=== PATIENT | female | born 1935 | race Caucasian/White ===

== ENCOUNTER 2017-03-02 19:21 | Inpatient (IN) ==
[2017-03-02] MEDS ORDERED: HALOPERIDOL 5 MG/ML AMP ONE (19:49)
[2017-03-02] MEDS ORDERED: LORazepam 2 MG/1 ML VIAL ONE (19:49)
[2017-03-02] MEDS ORDERED: HALOPERIDOL 5 MG/ML AMP IV STA (20:02)
[2017-03-02] MEDS ORDERED: LORazepam 2 MG/1 ML VIAL IV STA (20:03)
[2017-03-02] MEDS ORDERED: SODIUM CHLORIDE 0.9% 500 ML IV STA (20:10)
[2017-03-02 20:44] LABS: Basophils % 0.7 % (0.0-0.8); Eosinophils # 0.1 10*3/uL (0.0-0.87); Eosinophils % 1.2 % (0.00-10.9); Hematocrit 43.5 VOL% (35.7-47.0); Hemoglobin 14.7 GM/DL (12.0-16.0); Immature Granulocytes % 0.3 %; Immature Granulocytes Absolute 0.02 #; Lymphocytes # 0.9 10*3/uL (1.4-4.0); Lymphocytes % 15.5 % (21.3-54.2); Mean Corpuscular HGB Conc 33.8 GM/DL (32-36); Mean Corpuscular Hemoglobin 30 PG (27-34); Mean Corpuscular Volume 89.7 FL (87-102); Mean Platelet Volume 10.5 FL (9.6-12.0); Monocytes # 0.5 10*3/uL (0.11-0.8); Monocytes % 9.1 % (1.7-12.7); Neutrophils # 4.2 10*3/uL (1.4-7.4); Neutrophils % 73.2 % (38.7-73.9); Platelet Count 155 T/CUMM (130-400); Red Blood Count 4.85 MC/CUMM (3.8-5.5); Red Cell Distribution Width 13.8 % (9.3-17.3); White Blood Count 5.7 T/CUMM (4-12)
[2017-03-02 20:58] LABS: Ammonia 16 UMOL/L (11-32)
[2017-03-02 21:04] LABS: Alanine Aminotransferase 18 U/L (13-56); Albumin 3.5 G/DL (3.4-5.0); Alkaline Phosphatase 58 U/L (45-117); Aspartate Amino Transferase 16 U/L (0-37); Blood Urea Nitrogen 11 MG/DL (7-18); Calcium 8.9 MG/DL (8.5-10.1); Glucose 130 MG/DL (74-106); Magnesium 2.1 MG/DL (1.8-2.4); Osmolality,Calculated 266.4 MOS/KG (273-304); Potassium 3.9 MMOL/L (3.5-5.1); Sodium 133 MMOL/L (136-145); Total Protein 7.5 G/DL (6.4-8.3); Troponin I Only < 0.015 NG/ML (0.00-0.045)
[2017-03-02 21:29] LABS: Apearance,Urine CLEAR (Clear); Bilirubin,Urine Negative (Negative); Blood, Urine Negative (Negative); Glucose,Urine (UA) Negative (Negative); Ketones,Urine Negative (Negative); Mucus,Urine Occasional /LPF (Occasional); Nitrite,Urine Negative (Negative); Protein,Urine Negative; RBC,Urine 1 /HPF (0-4); Squamous Epithelial Cell,Urine Occasional /HPF (0-10); Urine Color Yellow (Yellow); Urine Specific Gravity 1.012 (1.001-1.035)
[2017-03-02 21:32] LABS: Barbiturates Screen,Urine Negative (Negative); Benzodiazepines Screen,Urine Negative (Negative); Cannabinoid Screen,Urine Negative (Negative); Opiate Screen,Urine Negative (Negative); Phencyclidine Screen,Urine Negative (Negative)
[2017-03-02 21:39] LABS: PT Patient Result 10.7 SECS
[2017-03-02] MEDS ORDERED: ONDANSETRON 4 MG/2 ML VIAL IV PRN (23:42)
[2017-03-02] MEDS ORDERED: ACETAMINOPHEN 325 MG TABLET PO PRN (23:42)
[2017-03-03] MEDS: SODIUM CHLORIDE 0.9% 1,000 ML IV SCH ×2 (01:07→12:17)
[2017-03-03] MEDS: HALOPERIDOL 5 MG/ML AMP IM PRN ×2 (03:09→22:47)
[2017-03-03] MEDS: LORazepam 2 MG/1 ML VIAL IV PRN ×2 (04:13→09:08)
[2017-03-03 05:31] LABS: Basophils % 0.6 % (0.0-0.8); Eosinophils # 0.1 10*3/uL (0.0-0.87); Eosinophils % 1.1 % (0.00-10.9); Hematocrit 39.4 VOL% (35.7-47.0); Hemoglobin 13.9 GM/DL (12.0-16.0); Immature Granulocytes % 0.4 %; Immature Granulocytes Absolute 0.02 #; Lymphocytes # 0.8 10*3/uL (1.4-4.0); Lymphocytes % 16.6 % (21.3-54.2); Mean Corpuscular HGB Conc 35.3 GM/DL (32-36); Mean Corpuscular Hemoglobin 31 PG (27-34); Mean Corpuscular Volume 87.9 FL (87-102); Mean Platelet Volume 10.7 FL (9.6-12.0); Monocytes # 0.5 10*3/uL (0.11-0.8); Monocytes % 10.1 % (1.7-12.7); Neutrophils # 3.4 10*3/uL (1.4-7.4); Neutrophils % 71.2 % (38.7-73.9); Platelet Count 153 T/CUMM (130-400); Red Blood Count 4.48 MC/CUMM (3.8-5.5); White Blood Count 4.8 T/CUMM (4-12)
[2017-03-03 05:53] LABS: Albumin 3.1 G/DL (3.4-5.0); Bilirubin,Total 0.9 MG/DL (0.2-1.0); Calcium 8.5 MG/DL (8.5-10.1); Magnesium 2.4 MG/DL (1.8-2.4); Osmolality,Calculated 268.2 MOS/KG (273-304); Potassium 3.8 MMOL/L (3.5-5.1); Risk Ratio 4.32; Total Protein 6.6 G/DL (6.4-8.3)
[2017-03-03] MEDS: DOCUSATE SODIUM 100 MG CAPSULE PO SCH ×2 (09:10→20:58)
[2017-03-03] MEDS: PANTOPRAZOLE 40 MG TABLET PO SCH (09:10)
[2017-03-03] MEDS ORDERED: FUROSEMIDE 40 MG/4 ML VIAL IV ONE (11:46)
[2017-03-03] MEDS: LEVOFLOXACIN INJ 250 MG in PREMIX 1 EACH IV SCH (12:17)
[2017-03-04] MEDS: LORazepam 2 MG/1 ML VIAL IV PRN ×4 (01:43→22:54)
[2017-03-04] MEDS ORDERED: LORazepam 2 MG/1 ML VIAL IM ONE (03:00)
[2017-03-04] MEDS ORDERED: HALOPERIDOL 5 MG/ML AMP IM ONE (03:00)
[2017-03-04 05:54] LABS: Calcium 8.4 MG/DL (8.5-10.1); Potassium 3.9 MMOL/L (3.5-5.1)
[2017-03-04] MEDS: FUROSEMIDE 20 MG/2 ML VIAL IV SCH (09:13)
[2017-03-04] MEDS: PANTOPRAZOLE 40 MG TABLET PO SCH (09:14)
[2017-03-04] MEDS: DOCUSATE SODIUM 100 MG CAPSULE PO SCH ×2 (09:14→21:54)
[2017-03-04 11:50] LABS: Lymphocytes,CSF 68 %; Monocytes,CSF 32 %; Red Blood Cell,CSF < 1 C/CUMM; White Blood Cell,CSF 4 C/CUMM
[2017-03-04 11:51] LABS: Appearance,CSF Clear
[2017-03-04 11:55] LABS: Glucose,CSF 56 MG/DL (40-70)
[2017-03-04] MEDS: SODIUM CHLORIDE 0.9% 1,000 ML IV SCH (12:46)
[2017-03-04] MEDS: LEVOFLOXACIN INJ 250 MG in PREMIX 1 EACH IV SCH (12:46)
[2017-03-04] MEDS ORDERED: AMINO ACIDS/DEXT/LYTES 4.25-5% 2,000 ML IV SCH (20:00)
[2017-03-05] MEDS: LORazepam 2 MG/1 ML VIAL IV PRN ×2 (04:59→13:57)
[2017-03-05] MEDS: HALOPERIDOL 5 MG/ML AMP IM PRN (05:37)
[2017-03-05 06:22] LABS: Albumin 3.1 G/DL (3.4-5.0); Bilirubin,Total 0.6 MG/DL (0.2-1.0); Calcium 8.9 MG/DL (8.5-10.1); Osmolality,Calculated 276.8 MOS/KG (273-304); Potassium 3.9 MMOL/L (3.5-5.1); Total Protein 7.3 G/DL (6.4-8.3)
[2017-03-05] MEDS: FUROSEMIDE 20 MG/2 ML VIAL IV SCH (09:20)
[2017-03-05] MEDS: PANTOPRAZOLE 40 MG TABLET PO SCH (10:32)
[2017-03-05] MEDS: DOCUSATE SODIUM 100 MG CAPSULE PO SCH ×2 (10:32→21:16)
[2017-03-05] MEDS: LEVOFLOXACIN INJ 250 MG in PREMIX 1 EACH IV SCH (13:57)
[2017-03-05] MEDS: FAT EMULSION 20% 250 ML IV SCH (15:27)
[2017-03-05] MEDS: TRACE ELEMENTS (5) 1 ML, MULTIVITAMIN INJ 10 ML in AMINO ACIDS/DEXT/LYTES 4.25-5% 2,000 ML IV SCH (17:20)
[2017-03-05] MEDS: hydrALAZINE 20 MG/1 ML VIAL IV SCH (22:58)
[2017-03-05] MEDS: SODIUM CHLORIDE 0.9% 1,000 ML IV SCH (22:58)
[2017-03-05] MEDS: FAMOTIDINE 20 MG/2 ML VIAL IV SCH (22:59)
[2017-03-05] MEDS: methylPREDNISolone SOD SUC 40 MG/1 ML VIAL IV SCH (22:59)
[2017-03-06 04:08] LABS: Calcium 8.8 MG/DL (8.5-10.1); Osmolality,Calculated 278.8 MOS/KG (273-304); Potassium 3.9 MMOL/L (3.5-5.1); Prealbumin 28.5 MG/DL (20-40)
[2017-03-06 04:11] LABS: Alanine Aminotransferase 32 U/L (13-56); Albumin 3.4 G/DL (3.4-5.0); Alkaline Phosphatase 58 U/L (45-117); Aspartate Amino Transferase 53 U/L (0-37); Bilirubin,Direct < 0.100 MG/DL (0.0-0.20); Total Protein 7.8 G/DL (6.4-8.3)
[2017-03-06] MEDS: hydrALAZINE 20 MG/1 ML VIAL IV SCH ×4 (05:12→22:28)
[2017-03-06] MEDS: methylPREDNISolone SOD SUC 40 MG/1 ML VIAL IV SCH ×3 (06:34→22:25)
[2017-03-06] MEDS: SODIUM CHLORIDE 0.9% 1,000 ML IV SCH ×2 (07:54→09:24)
[2017-03-06] MEDS: DOCUSATE SODIUM 100 MG CAPSULE PO SCH ×2 (09:24→20:53)
[2017-03-06] MEDS: FUROSEMIDE 20 MG/2 ML VIAL IV SCH (09:24)
[2017-03-06] MEDS: LEVOFLOXACIN INJ 500 MG in PREMIX 1 EACH IV SCH (09:25)
[2017-03-06 11:51] LABS: VDRL Spinal Fluid Negative (Negative)
[2017-03-06] MEDS: MEMANTINE 5 MG TABLET PO SCH ×2 (15:11→20:53)
[2017-03-06] MEDS: TRACE ELEMENTS (5) 1 ML, MULTIVITAMIN INJ 10 ML in AMINO ACIDS/DEXT/LYTES 4.25-5% 2,000 ML IV SCH (16:56)
[2017-03-06] MEDS: FAT EMULSION 20% 250 ML IV SCH (16:57)
[2017-03-06] MEDS: OLANZapine 2.5 MG TABLET PO SCH (20:53)
[2017-03-06] MEDS ORDERED: DEXTROSE 50% 25 GM/50 ML VIAL IV PRN (21:35)
[2017-03-06] MEDS ORDERED: GLUCAGON 1 MG VIAL IM PRN (21:35)
[2017-03-06] MEDS: HALOPERIDOL 5 MG/ML AMP IV PRN (22:23)
[2017-03-06] MEDS: FAMOTIDINE 20 MG/2 ML VIAL IV SCH (22:30)
[2017-03-06] MEDS: INSULIN REGULAR 100 UNIT/ML SUBCUT SCH (22:32)
[2017-03-07] MEDS: INSULIN REGULAR 100 UNIT/ML SUBCUT SCH ×5 (02:27→18:13)
[2017-03-07] MEDS: hydrALAZINE 20 MG/1 ML VIAL IV SCH ×3 (04:57→16:17)
[2017-03-07] MEDS: SODIUM CHLORIDE 0.9% 1,000 ML IV SCH ×2 (04:58→12:27)
[2017-03-07] MEDS: FUROSEMIDE 20 MG/2 ML VIAL IV SCH (08:40)
[2017-03-07] MEDS: methylPREDNISolone SOD SUC 40 MG/1 ML VIAL IV SCH ×2 (08:40→14:12)
[2017-03-07] MEDS: LEVOFLOXACIN INJ 500 MG in PREMIX 1 EACH IV SCH (08:41)
[2017-03-07] MEDS: DOCUSATE SODIUM 100 MG CAPSULE PO SCH ×2 (08:45→20:04)
[2017-03-07] MEDS: OLANZapine 2.5 MG TABLET PO SCH ×2 (08:46→20:04)
[2017-03-07] MEDS: MEMANTINE 5 MG TABLET PO SCH ×2 (08:46→20:04)
[2017-03-07] MEDS: FAT EMULSION 20% 250 ML IV SCH (14:04)
[2017-03-07] MEDS: TRACE ELEMENTS (5) 1 ML, MULTIVITAMIN INJ 10 ML in AMINO ACIDS/DEXT/LYTES 4.25-5% 2,000 ML IV SCH (17:18)
[2017-03-08] MEDS: INSULIN REGULAR 100 UNIT/ML SUBCUT SCH ×7 (00:02→22:28)
[2017-03-08] MEDS: FAMOTIDINE 20 MG/2 ML VIAL IV SCH ×2 (00:02→22:26)
[2017-03-08] MEDS: hydrALAZINE 20 MG/1 ML VIAL IV SCH ×5 (00:02→22:29)
[2017-03-08] MEDS: methylPREDNISolone SOD SUC 40 MG/1 ML VIAL IV SCH ×4 (00:03→22:33)
[2017-03-08] MEDS: SODIUM CHLORIDE 0.9% 1,000 ML IV SCH ×3 (04:53→12:12)
[2017-03-08] MEDS: DOCUSATE SODIUM 100 MG CAPSULE PO SCH ×2 (09:02→20:19)
[2017-03-08] MEDS: OLANZapine 2.5 MG TABLET PO SCH ×2 (09:02→20:20)
[2017-03-08] MEDS: MEMANTINE 5 MG TABLET PO SCH ×2 (09:02→20:19)
[2017-03-08] MEDS: FUROSEMIDE 20 MG/2 ML VIAL IV SCH (10:00)
[2017-03-08 15:42] LABS: M. Tuberculosis PCR Result Negative (Negative); M. Tuberculosis PCR Source CSF
[2017-03-08] MEDS: FAT EMULSION 20% 250 ML IV SCH (17:07)
[2017-03-08] MEDS: TRACE ELEMENTS (5) 1 ML, MULTIVITAMIN INJ 10 ML in AMINO ACIDS/DEXT/LYTES 4.25-5% 2,000 ML IV SCH (17:09)
[2017-03-08] MEDS: ZINC OXIDE PASTE 113 GM TUBE TOP SCH (20:31)
[2017-03-09] MEDS: SODIUM CHLORIDE 0.9% 1,000 ML IV SCH ×2 (02:22→18:31)
[2017-03-09 03:50] LABS: Calcium 8.7 MG/DL (8.5-10.1); Magnesium 2.1 MG/DL (1.8-2.4); Osmolality,Calculated 293.3 MOS/KG (273-304); Potassium 3.5 MMOL/L (3.5-5.1)
[2017-03-09] MEDS: hydrALAZINE 20 MG/1 ML VIAL IV SCH ×3 (03:51→18:34)
[2017-03-09] MEDS: INSULIN REGULAR 100 UNIT/ML SUBCUT SCH ×6 (03:53→21:18)
[2017-03-09] MEDS: methylPREDNISolone SOD SUC 40 MG/1 ML VIAL IV SCH ×3 (06:32→21:45)
[2017-03-09] MEDS: DOCUSATE SODIUM 100 MG CAPSULE PO SCH ×2 (09:00→21:17)
[2017-03-09] MEDS: MEMANTINE 5 MG TABLET PO SCH ×2 (09:00→21:17)
[2017-03-09] MEDS: OLANZapine 2.5 MG TABLET PO SCH ×2 (09:01→21:18)
[2017-03-09] MEDS: FUROSEMIDE 20 MG/2 ML VIAL IV SCH (09:02)
[2017-03-09] MEDS: ZINC OXIDE PASTE 113 GM TUBE TOP SCH ×3 (09:02→21:46)
[2017-03-09] MEDS: HALOPERIDOL 5 MG/ML AMP IV PRN (18:30)
[2017-03-09] MEDS: TRACE ELEMENTS (5) 1 ML, MULTIVITAMIN INJ 10 ML in AMINO ACIDS/DEXT/LYTES 4.25-5% 2,000 ML IV SCH (18:41)
[2017-03-09] MEDS: FAT EMULSION 20% 250 ML IV SCH (18:43)
[2017-03-09] MEDS: FAMOTIDINE 20 MG/2 ML VIAL IV SCH (21:45)
[2017-03-10] MEDS: hydrALAZINE 20 MG/1 ML VIAL IV SCH ×5 (00:49→22:50)
[2017-03-10] MEDS: INSULIN REGULAR 100 UNIT/ML SUBCUT SCH ×6 (02:22→22:49)
[2017-03-10] MEDS: SODIUM CHLORIDE 0.9% 1,000 ML IV SCH ×2 (04:57→21:20)
[2017-03-10] MEDS: HALOPERIDOL 5 MG/ML AMP IV PRN ×2 (04:59→21:18)
[2017-03-10] MEDS: methylPREDNISolone SOD SUC 40 MG/1 ML VIAL IV SCH ×3 (06:54→22:50)
[2017-03-10 07:44] LABS: Basophils % 0.2 % (0.0-0.8); Eosinophils % 0.1 % (0.00-10.9); Hematocrit 45.2 VOL% (35.7-47.0); Hemoglobin 15.7 GM/DL (12.0-16.0); Immature Granulocytes % 0.8 %; Immature Granulocytes Absolute 0.09 #; Lymphocytes # 0.9 10*3/uL (1.4-4.0); Lymphocytes % 8.6 % (21.3-54.2); Mean Corpuscular HGB Conc 34.7 GM/DL (32-36); Mean Corpuscular Hemoglobin 30 PG (27-34); Mean Corpuscular Volume 86.8 FL (87-102); Mean Platelet Volume 11.4 FL (9.6-12.0); Monocytes # 0.5 10*3/uL (0.11-0.8); Monocytes % 4.6 % (1.7-12.7); Neutrophils # 9.4 10*3/uL (1.4-7.4); Neutrophils % 85.7 % (38.7-73.9); Platelet Count 189 T/CUMM (130-400); Red Blood Count 5.21 MC/CUMM (3.8-5.5); Red Cell Distribution Width 13.5 % (9.3-17.3); White Blood Count 10.9 T/CUMM (4-12)
[2017-03-10 08:10] LABS: Calcium 8.9 MG/DL (8.5-10.1); Magnesium 1.9 MG/DL (1.8-2.4); Osmolality,Calculated 283.8 MOS/KG (273-304); Potassium 3.4 MMOL/L (3.5-5.1)
[2017-03-10] MEDS: NYSTATIN 500,000 UNIT/5 ML UDCUP SWISH/SWAL SCH ×4 (10:36→21:17)
[2017-03-10] MEDS: POTASSIUM CHLORIDE 8 MEQ CAPSULE PO SCH (10:38)
[2017-03-10] MEDS: FUROSEMIDE 20 MG/2 ML VIAL IV SCH (10:39)
[2017-03-10] MEDS: ZINC OXIDE PASTE 113 GM TUBE TOP SCH ×2 (10:41→21:17)
[2017-03-10] MEDS: DOCUSATE SODIUM 100 MG CAPSULE PO SCH ×2 (10:42→21:17)
[2017-03-10] MEDS: MEMANTINE 5 MG TABLET PO SCH ×2 (10:48→21:17)
[2017-03-10] MEDS: OLANZapine 2.5 MG TABLET PO SCH ×2 (10:48→21:17)
[2017-03-10] MEDS: FAT EMULSION 20% 250 ML IV SCH (15:45)
[2017-03-10] MEDS: FAMOTIDINE 20 MG/2 ML VIAL IV SCH (22:49)
[2017-03-11] MEDS: INSULIN REGULAR 100 UNIT/ML SUBCUT SCH ×6 (02:59→22:24)
[2017-03-11] MEDS: HALOPERIDOL 5 MG/ML AMP IV PRN (04:19)
[2017-03-11] MEDS: methylPREDNISolone SOD SUC 40 MG/1 ML VIAL IV SCH ×3 (05:41→22:22)
[2017-03-11 05:42] LABS: Basophils % 0.1 % (0.0-0.8); Hematocrit 43.5 VOL% (35.7-47.0); Hemoglobin 15.3 GM/DL (12.0-16.0); Immature Granulocytes % 0.6 %; Immature Granulocytes Absolute 0.05 #; Lymphocytes # 0.9 10*3/uL (1.4-4.0); Lymphocytes % 10.5 % (21.3-54.2); Mean Corpuscular HGB Conc 35.2 GM/DL (32-36); Mean Corpuscular Hemoglobin 30 PG (27-34); Mean Corpuscular Volume 85.5 FL (87-102); Mean Platelet Volume 11.4 FL (9.6-12.0); Monocytes # 0.5 10*3/uL (0.11-0.8); Monocytes % 5.6 % (1.7-12.7); Neutrophils # 7.3 10*3/uL (1.4-7.4); Neutrophils % 83.2 % (38.7-73.9); Platelet Count 211 T/CUMM (130-400); Red Blood Count 5.09 MC/CUMM (3.8-5.5); Red Cell Distribution Width 13.7 % (9.3-17.3); White Blood Count 8.8 T/CUMM (4-12)
[2017-03-11] MEDS: hydrALAZINE 20 MG/1 ML VIAL IV SCH ×4 (05:42→22:20)
[2017-03-11 06:26] LABS: Osmolality,Calculated 283.7 MOS/KG (273-304); Potassium 3.8 MMOL/L (3.5-5.1)
[2017-03-11] MEDS: NYSTATIN 500,000 UNIT/5 ML UDCUP SWISH/SWAL SCH ×4 (08:52→20:25)
[2017-03-11] MEDS: FUROSEMIDE 20 MG/2 ML VIAL IV SCH (08:52)
[2017-03-11] MEDS: POTASSIUM CHLORIDE 8 MEQ CAPSULE PO SCH (08:52)
[2017-03-11] MEDS: DOCUSATE SODIUM 100 MG CAPSULE PO SCH ×2 (08:52→20:23)
[2017-03-11] MEDS: ZINC OXIDE PASTE 113 GM TUBE TOP SCH ×2 (08:53→20:29)
[2017-03-11] MEDS: OLANZapine 2.5 MG TABLET PO SCH ×2 (08:53→20:25)
[2017-03-11] MEDS: MEMANTINE 5 MG TABLET PO SCH ×2 (08:53→20:25)
[2017-03-11] MEDS: SODIUM CHLORIDE 0.9% 1,000 ML IV SCH ×2 (14:50→20:30)
[2017-03-11] MEDS: FAMOTIDINE 20 MG/2 ML VIAL IV SCH (22:17)
[2017-03-12] MEDS: hydrALAZINE 20 MG/1 ML VIAL IV SCH ×2 (04:31→10:50)
[2017-03-12] MEDS: INSULIN REGULAR 100 UNIT/ML SUBCUT SCH ×4 (04:31→12:29)
[2017-03-12 05:52] LABS: Magnesium 2.1 MG/DL (1.8-2.4); Osmolality,Calculated 283.5 MOS/KG (273-304); Potassium 3.6 MMOL/L (3.5-5.1)
[2017-03-12] MEDS: methylPREDNISolone SOD SUC 40 MG/1 ML VIAL IV SCH ×2 (06:15→15:30)
[2017-03-12] MEDS: DOCUSATE SODIUM 100 MG CAPSULE PO SCH (10:09)
[2017-03-12] MEDS: NYSTATIN 500,000 UNIT/5 ML UDCUP SWISH/SWAL SCH ×2 (10:10→13:30)
[2017-03-12] MEDS: OLANZapine 2.5 MG TABLET PO SCH (10:10)
[2017-03-12] MEDS: MEMANTINE 5 MG TABLET PO SCH (10:10)
[2017-03-12] MEDS: POTASSIUM CHLORIDE 8 MEQ CAPSULE PO SCH (10:10)
[2017-03-12] MEDS: FUROSEMIDE 20 MG/2 ML VIAL IV SCH (10:28)
[2017-03-12 14:03] VITALS: BP 145/86
[2017-03-12] MEDS: SODIUM CHLORIDE 0.9% 1,000 ML IV SCH (15:28)
[2017-03-12] MEDS: ZINC OXIDE PASTE 113 GM TUBE TOP SCH (15:29)
== END 2017-03-12 16:14 | DRG 57 ==
LOC: EDUNIT# → EDBD → N.ED 19:21 → N.EDINP 22:37 → N.4E 22:59
PROVIDERS: ADMIT Internal Medicine; ATTEND Internal Medicine

== ENCOUNTER 2018-01-30 16:38 | Inpatient (IN) ==
[2018-01-30] MEDS ORDERED: ONDANSETRON 4 MG/2 ML VIAL IV ONE (19:25)
[2018-01-30] MEDS ORDERED: SODIUM CHLORIDE 0.9% 1,000 ML IV STA (19:25)
[2018-01-30 20:21] LABS: Basophils # 0.1 10*3/uL (0.0-0.2); Basophils % 0.2 % (0.0-0.8); Eosinophils # 0.1 10*3/uL (0.0-0.87); Eosinophils % 0.3 % (0.00-10.9); Hematocrit 46.6 VOL% (35.7-47.0); Hemoglobin 15.5 GM/DL (12.0-16.0); Immature Granulocytes % 0.9 %; Lymphocytes # 0.8 10*3/uL (1.4-4.0); Lymphocytes % 3.8 % (21.3-54.2); Mean Corpuscular HGB Conc 33.3 GM/DL (32-36); Mean Corpuscular Hemoglobin 31 PG (27-34); Mean Corpuscular Volume 91.9 FL (87-102); Mean Platelet Volume 10.2 FL (9.6-12.0); Monocytes # 0.8 10*3/uL (0.11-0.8); Monocytes % 3.6 % (1.7-12.7); Neutrophils # 19.7 10*3/uL (1.4-7.4); Neutrophils % 91.2 % (38.7-73.9); Platelet Count 215 T/CUMM (130-400); Red Blood Count 5.07 MC/CUMM (3.8-5.5); Red Cell Distribution Width 13.4 % (9.3-17.3); White Blood Count 21.6 T/CUMM (4-12)
[2018-01-30 20:36] LABS: Albumin 2.6 G/DL (3.4-5.0); Bilirubin,Total 0.7 MG/DL (0.2-1.0); Calcium 7.3 MG/DL (8.5-10.1); Osmolality,Calculated 269.7 MOS/KG (273-304); Potassium 5.6 MMOL/L (3.5-5.1); Total Protein 6.1 G/DL (6.4-8.3)
[2018-01-30] MEDS ORDERED: LEVOFLOXACIN INJ 500 MG in PREMIX 1 EACH IV STA (21:17)
[2018-01-30] MEDS ORDERED: ONDANSETRON 4 MG/2 ML VIAL IV PRN (21:25)
[2018-01-30] MEDS ORDERED: HYDROmorphone 2 MG/1 ML VIAL IV PRN (21:25)
[2018-01-30] MEDS ORDERED: ACETAMINOPHEN 325 MG TABLET PO PRN (21:25)
[2018-01-30] MEDS ORDERED: DEXTROSE 5% NACL 0.45% 1,000 ML IV SCH (21:30)
[2018-01-30 21:35] LABS: Band Neutrophils 1 % (0-10); Lymphocytes 8 % (20-55); Platelet Estimate Normal; Segmented Neutrophils 89 % (50-85); Total Cells Counted 100
[2018-01-30] MEDS ORDERED: DEXTROSE 50% 25 GM/50 ML VIAL IV STA (22:24)
[2018-01-30] MEDS ORDERED: LACTATED RINGERS 1,000 ML IV ONE (22:24)
[2018-01-30] MEDS ORDERED: SODIUM BICARB INJ 100 MEQ in STERILE WATER INJ 400 ML IV ONE (22:25)
[2018-01-30] MEDS ORDERED: INSULIN REGULAR 100 UNIT/ML IV STA (23:14)
[2018-01-30] MEDS ORDERED: metroNIDAZOLE INJ 500 MG in PREMIX 1 EACH IV SCH (23:30)
[2018-01-30] MEDS ORDERED: cefOXitin 2,000 MG in SYRINGE 1 EACH IV ONE (23:30)
[2018-01-30] MEDS ORDERED: LIDOCAINE 1%/EPI INJ 20 ML VIAL ONE (23:44)
[2018-01-31] MEDS ORDERED: CALCIUM GLUCONATE 1,000 MG in SODIUM CHLORIDE 0.9% 100 ML IV ONE
[2018-01-31] MEDS ORDERED: SUGAMMADEX 200 MG/2 ML VIAL IV ONE (00:21)
[2018-01-31] MEDS ORDERED: TISSUE ADHESIVE 1 EACH APPLICATOR TOP ONE (00:47)
[2018-01-31 01:08] LABS: Apearance,Urine CLEAR (Clear); Bilirubin,Urine Negative (Negative); Blood, Urine Negative (Negative); Glucose,Urine (UA) 50 mg/dL (Negative); Hyaline Casts,Urine 1 /LPF (0-3); Ketones,Urine Negative (Negative); Nitrite,Urine Negative (Negative); Protein,Urine Negative; RBC,Urine 2 /HPF (0-4); Squamous Epithelial Cell,Urine Occasional /HPF (0-10); Urine Color Yellow (Yellow); Urine Specific Gravity 1.034 (1.001-1.035); Urine Urobilinogen < 2.0 EU/DL (0.2-1.0); WBC,Urine 1 /HPF (0-6)
[2018-01-31] MEDS ORDERED: PHENYLEPHRINE 1 MG/10 ML SYRINGE IV ONE (01:47)
[2018-01-31] MEDS ORDERED: ROCURONIUM 100 MG/10 ML VIAL IV ONE (01:47)
[2018-01-31] MEDS ORDERED: SEVOFLURANE 1 UNIT/15 MINUTE INH ONE (01:47)
[2018-01-31] MEDS ORDERED: PROPOFOL 200 MG/20 ML VIAL IV ONE (01:47)
[2018-01-31] MEDS ORDERED: ONDANSETRON 4 MG/2 ML VIAL ONE (01:47)
[2018-01-31] MEDS ORDERED: SODIUM CHLORIDE 0.9% 2,000 ML IV ONE (01:47)
[2018-01-31] MEDS ORDERED: fentaNYL 100 MCG/2 ML VIAL ONE (01:47)
[2018-01-31] MEDS ORDERED: ePHEDrine 50 MG/ML AMP ONE (01:47)
[2018-01-31] MEDS ORDERED: PROMETHAZINE 25 MG/1 ML VIAL IM PRN (01:52)
[2018-01-31] MEDS ORDERED: ONDANSETRON 4 MG/2 ML VIAL IV PRN (01:52)
[2018-01-31] MEDS ORDERED: LACTATED RINGERS 1,000 ML IV SCH (02:00)
[2018-01-31] MEDS: KETOROLAC 15 MG/1 ML VIAL IV SCH ×4 (02:11→20:09)
[2018-01-31 04:41] LABS: Basophils % 0.3 % (0.0-0.8); Eosinophils # 0.1 10*3/uL (0.0-0.87); Eosinophils % 0.4 % (0.00-10.9); Hematocrit 41.7 VOL% (35.7-47.0); Hemoglobin 13.5 GM/DL (12.0-16.0); Immature Granulocytes % 0.9 %; Lymphocytes # 1.1 10*3/uL (1.4-4.0); Lymphocytes % 9.1 % (21.3-54.2); Mean Corpuscular HGB Conc 32.4 GM/DL (32-36); Mean Corpuscular Hemoglobin 31 PG (27-34); Mean Corpuscular Volume 94.8 FL (87-102); Mean Platelet Volume 10.5 FL (9.6-12.0); Monocytes # 0.6 10*3/uL (0.11-0.8); Monocytes % 4.7 % (1.7-12.7); Neutrophils % 84.6 % (38.7-73.9); Platelet Count 215 T/CUMM (130-400); Red Cell Distribution Width 13.4 % (9.3-17.3); White Blood Count 11.8 T/CUMM (4-12)
[2018-01-31 05:14] LABS: Albumin 2.7 G/DL (3.4-5.0); Bilirubin,Total 0.8 MG/DL (0.2-1.0); Calcium 8.4 MG/DL (8.5-10.1); Osmolality,Calculated 279.8 MOS/KG (273-304); Potassium 4.5 MMOL/L (3.5-5.1); Total Protein 6.8 G/DL (6.4-8.3)
[2018-01-31] MEDS: HYDROmorphone 2 MG/1 ML VIAL IV PRN ×2 (05:15→17:14)
[2018-01-31] MEDS ORDERED: ENOXAPARIN 40 MG/0.4 ML SYRINGE SUBCUT SCH (09:00)
[2018-01-31] MEDS ORDERED: PANTOPRAZOLE 40 MG VIAL IV SCH (09:00)
[2018-01-31] MEDS: MEMANTINE 10 MG TABLET PO SCH ×2 (09:46→21:29)
[2018-01-31] MEDS: PANTOPRAZOLE 40 MG VIAL IV SCH (09:54)
[2018-01-31] MEDS: DEXT 5% NACL 0.45% KCL 20 MEQ 20 MEQ/1,000 ML BAG IV SCH ×2 (11:09→22:24)
[2018-01-31] MEDS: GABAPENTIN 100 MG CAPSULE PO SCH ×2 (15:41→21:29)
[2018-01-31] MEDS: ENOXAPARIN 40 MG/0.4 ML SYRINGE SUBCUT SCH (17:51)
[2018-01-31] MEDS: RIVASTIGMINE 4.6 MG/24 HR PATCH TRANSDERM SCH (20:29)
[2018-01-31] MEDS ORDERED: LEVOFLOXACIN INJ 500 MG in PREMIX 1 EACH IV SCH (21:30)
[2018-02-01] MEDS: KETOROLAC 15 MG/1 ML VIAL IV SCH ×4 (01:58→20:29)
[2018-02-01] MEDS ORDERED: ALBUTEROL/IPRATROPIUM 3 ML NEB RESP TX PRN (02:05)
[2018-02-01] MEDS: HYDROmorphone 2 MG/1 ML VIAL IV PRN ×2 (02:24→19:54)
[2018-02-01 03:24] LABS: Calcium 8.2 MG/DL (8.5-10.1); Osmolality,Calculated 274.1 MOS/KG (273-304); Potassium 4.9 MMOL/L (3.5-5.1)
[2018-02-01 03:51] LABS: ABG Base Excess -3.4 MMOL/L (-2.5-2.5); ABG HCO3 21.5 MMOL/L (20-26); ABG PCO2 39.8 MM HG (35-48); ABG PH 7.349 (7.35-7.45); ABG TCO2 19.3 MMOL/L (23-27); Allen Test Positive; Pt O2 Delivery Device Venturi Mask
[2018-02-01] MEDS ORDERED: FUROSEMIDE 20 MG/2 ML VIAL IV ONE (03:59)
[2018-02-01 05:03] LABS: Basophils % 0.2 % (0.0-0.8); Eosinophils % 0.3 % (0.00-10.9); Hematocrit 41.8 VOL% (35.7-47.0); Hemoglobin 13.5 GM/DL (12.0-16.0); Immature Granulocytes % 0.8 %; Immature Granulocytes Absolute 0.11 #; Lymphocytes # 0.7 10*3/uL (1.4-4.0); Lymphocytes % 4.9 % (21.3-54.2); Mean Corpuscular HGB Conc 32.3 GM/DL (32-36); Mean Corpuscular Hemoglobin 31 PG (27-34); Mean Corpuscular Volume 95.7 FL (87-102); Mean Platelet Volume 9.9 FL (9.6-12.0); Monocytes # 0.8 10*3/uL (0.11-0.8); Monocytes % 5.7 % (1.7-12.7); Neutrophils # 11.8 10*3/uL (1.4-7.4); Neutrophils % 88.1 % (38.7-73.9); Platelet Count 207 T/CUMM (130-400); Red Blood Count 4.37 MC/CUMM (3.8-5.5); Red Cell Distribution Width 13.4 % (9.3-17.3); White Blood Count 13.4 T/CUMM (4-12)
[2018-02-01 05:22] LABS: Calcium 8.4 MG/DL (8.5-10.1); Potassium 4.8 MMOL/L (3.5-5.1)
[2018-02-01 05:48] LABS: Lymphocytes 5 % (20-55); Platelet Estimate Normal; Segmented Neutrophils 91 % (50-85); Total Cells Counted 100
[2018-02-01] MEDS: DEXT 5% NACL 0.45% KCL 20 MEQ 20 MEQ/1,000 ML BAG IV SCH ×3 (07:23→20:29)
[2018-02-01 07:30] LABS: Apearance,Urine CLEAR (Clear); Bilirubin,Urine Negative (Negative); Blood, Urine Small mg/dL (Negative); Glucose,Urine (UA) Negative (Negative); Ketones,Urine Negative (Negative); Nitrite,Urine Negative (Negative); Protein,Urine Negative; RBC,Urine 2 /HPF (0-4); Squamous Epithelial Cell,Urine Occasional /HPF (0-10); Urine Color Straw (Yellow); Urine Specific Gravity 1.005 (1.001-1.035); Urine Urobilinogen < 2.0 EU/DL (0.2-1.0); WBC,Urine 15 /HPF (0-6)
[2018-02-01] MEDS: MEMANTINE 10 MG TABLET PO SCH ×2 (08:00→20:29)
[2018-02-01] MEDS: PANTOPRAZOLE 40 MG VIAL IV SCH (08:00)
[2018-02-01] MEDS: GABAPENTIN 100 MG CAPSULE PO SCH ×2 (15:17→20:29)
[2018-02-01] MEDS: ENOXAPARIN 40 MG/0.4 ML SYRINGE SUBCUT SCH (17:14)
[2018-02-01] MEDS: RIVASTIGMINE 4.6 MG/24 HR PATCH TRANSDERM SCH (20:28)
[2018-02-02] MEDS: KETOROLAC 15 MG/1 ML VIAL IV SCH ×4 (03:14→23:01)
[2018-02-02 04:31] LABS: Basophils % 0.5 % (0.0-0.8); Eosinophils # 0.2 10*3/uL (0.0-0.87); Eosinophils % 2.1 % (0.00-10.9); Hematocrit 36.3 VOL% (35.7-47.0); Hemoglobin 11.4 GM/DL (12.0-16.0); Immature Granulocytes % 0.9 %; Immature Granulocytes Absolute 0.08 #; Lymphocytes # 1.5 10*3/uL (1.4-4.0); Lymphocytes % 17.2 % (21.3-54.2); Mean Corpuscular HGB Conc 31.4 GM/DL (32-36); Mean Corpuscular Hemoglobin 30 PG (27-34); Mean Platelet Volume 10.8 FL (9.6-12.0); Monocytes # 0.8 10*3/uL (0.11-0.8); Monocytes % 9.7 % (1.7-12.7); Neutrophils % 69.6 % (38.7-73.9); Platelet Count 213 T/CUMM (130-400); Red Blood Count 3.82 MC/CUMM (3.8-5.5); Red Cell Distribution Width 13.3 % (9.3-17.3); White Blood Count 8.6 T/CUMM (4-12)
[2018-02-02 05:02] LABS: Calcium 8.3 MG/DL (8.5-10.1); Osmolality,Calculated 276.7 MOS/KG (273-304); Potassium 4.3 MMOL/L (3.5-5.1)
[2018-02-02] MEDS: MEMANTINE 10 MG TABLET PO SCH ×2 (08:00→20:34)
[2018-02-02] MEDS: PANTOPRAZOLE 40 MG VIAL IV SCH (08:00)
[2018-02-02] MEDS: DEXT 5% NACL 0.45% KCL 20 MEQ 20 MEQ/1,000 ML BAG IV SCH ×2 (08:10→19:01)
[2018-02-02] MEDS: GABAPENTIN 100 MG CAPSULE PO SCH ×2 (15:53→20:35)
[2018-02-02] MEDS: ENOXAPARIN 40 MG/0.4 ML SYRINGE SUBCUT SCH (18:09)
[2018-02-02] MEDS: RIVASTIGMINE 4.6 MG/24 HR PATCH TRANSDERM SCH (20:35)
[2018-02-03] MEDS: DEXT 5% NACL 0.45% KCL 20 MEQ 20 MEQ/1,000 ML BAG IV SCH ×2 (00:49→14:29)
[2018-02-03 06:17] LABS: Basophils % 0.6 % (0.0-0.8); Eosinophils # 0.2 10*3/uL (0.0-0.87); Eosinophils % 2.4 % (0.00-10.9); Hematocrit 37.1 VOL% (35.7-47.0); Hemoglobin 12.2 GM/DL (12.0-16.0); Immature Granulocytes % 0.4 %; Immature Granulocytes Absolute 0.03 #; Lymphocytes # 0.9 10*3/uL (1.4-4.0); Lymphocytes % 13.2 % (21.3-54.2); Mean Corpuscular HGB Conc 32.9 GM/DL (32-36); Mean Corpuscular Hemoglobin 31 PG (27-34); Mean Corpuscular Volume 93.9 FL (87-102); Mean Platelet Volume 10.7 FL (9.6-12.0); Monocytes # 0.8 10*3/uL (0.11-0.8); Monocytes % 11.1 % (1.7-12.7); Neutrophils # 5.1 10*3/uL (1.4-7.4); Neutrophils % 72.3 % (38.7-73.9); Platelet Count 220 T/CUMM (130-400); Red Blood Count 3.95 MC/CUMM (3.8-5.5); White Blood Count 7.1 T/CUMM (4-12)
[2018-02-03 06:35] LABS: Calcium 8.5 MG/DL (8.5-10.1); Osmolality,Calculated 277.5 MOS/KG (273-304); Potassium 4.3 MMOL/L (3.5-5.1)
[2018-02-03] MEDS ORDERED: INFLUENZA VIRUS VACCINE 0.5 ML SYRINGE IM ONE (09:00)
[2018-02-03] MEDS: MEMANTINE 10 MG TABLET PO SCH ×2 (09:37→21:56)
[2018-02-03] MEDS: PANTOPRAZOLE 40 MG VIAL IV SCH (09:37)
[2018-02-03] MEDS ORDERED: ACETAMINOPHEN 325 MG TABLET PO PRN (10:43)
[2018-02-03] MEDS ORDERED: TUBERCULIN SKIN TEST 0.1 ML SYRINGE INTRADERM ONE (11:30)
[2018-02-03] MEDS: GABAPENTIN 100 MG CAPSULE PO SCH ×2 (15:48→21:56)
[2018-02-03] MEDS: ENOXAPARIN 40 MG/0.4 ML SYRINGE SUBCUT SCH (18:50)
[2018-02-03] MEDS: RIVASTIGMINE 4.6 MG/24 HR PATCH TRANSDERM SCH (21:55)
[2018-02-04] MEDS: DEXT 5% NACL 0.45% KCL 20 MEQ 20 MEQ/1,000 ML BAG IV SCH ×3 (03:59→20:35)
[2018-02-04 04:02] LABS: Basophils % 0.7 % (0.0-0.8); Eosinophils # 0.2 10*3/uL (0.0-0.87); Eosinophils % 3.3 % (0.00-10.9); Hematocrit 37.6 VOL% (35.7-47.0); Hemoglobin 12.4 GM/DL (12.0-16.0); Immature Granulocytes % 0.5 %; Immature Granulocytes Absolute 0.03 #; Lymphocytes # 1.3 10*3/uL (1.4-4.0); Lymphocytes % 21.6 % (21.3-54.2); Mean Corpuscular Hemoglobin 30 PG (27-34); Mean Corpuscular Volume 92.2 FL (87-102); Mean Platelet Volume 10.4 FL (9.6-12.0); Monocytes # 0.7 10*3/uL (0.11-0.8); Monocytes % 12.2 % (1.7-12.7); Neutrophils # 3.6 10*3/uL (1.4-7.4); Neutrophils % 61.7 % (38.7-73.9); Platelet Count 241 T/CUMM (130-400); Red Blood Count 4.08 MC/CUMM (3.8-5.5); Red Cell Distribution Width 12.9 % (9.3-17.3); White Blood Count 5.8 T/CUMM (4-12)
[2018-02-04 04:27] LABS: Calcium 8.3 MG/DL (8.5-10.1); Osmolality,Calculated 274.8 MOS/KG (273-304)
[2018-02-04] MEDS: MEMANTINE 10 MG TABLET PO SCH ×2 (13:21→20:36)
[2018-02-04] MEDS: PANTOPRAZOLE 40 MG VIAL IV SCH (13:21)
[2018-02-04] MEDS: GABAPENTIN 100 MG CAPSULE PO SCH ×2 (18:56→20:37)
[2018-02-04] MEDS: ENOXAPARIN 40 MG/0.4 ML SYRINGE SUBCUT SCH (18:58)
[2018-02-04] MEDS ORDERED: diphenhydrAMINE 25 MG/10 ML UDCUP PO ONE (19:00)
[2018-02-04] MEDS: RIVASTIGMINE 4.6 MG/24 HR PATCH TRANSDERM SCH (20:35)
[2018-02-05] MEDS: DEXT 5% NACL 0.45% KCL 20 MEQ 20 MEQ/1,000 ML BAG IV SCH (01:45)
[2018-02-05] MEDS: PANTOPRAZOLE 40 MG VIAL IV SCH (08:22)
[2018-02-05] MEDS: MEMANTINE 10 MG TABLET PO SCH (08:22)
[2018-02-05 11:43] VITALS: BP 157/66
[2018-02-06] MEDS ORDERED: CHOLECALCIFEROL 5,000 UNIT TABLET PO SCH (09:00)
== END 2018-02-05 14:37 | DRG 351 ==
LOC: N.ED 16:38 → N.EDINP 21:24 → N.TELEN 22:31 → N.CC 23:36 → N.3E 01-31 14:23 → N.ICU 01-31 14:23 → N.3E 02-02 08:58
PROVIDERS: ADMIT Surgery; ATTEND Surgery

== ENCOUNTER 2018-05-05 17:03 | Inpatient (IN) ==
[2018-05-05 18:36] LABS: Basophils % 0.4 % (0.0-0.8); Eosinophils # 0.2 10*3/uL (0.0-0.87); Eosinophils % 2.1 % (0.00-10.9); Hematocrit 40.8 VOL% (35.7-47.0); Hemoglobin 13.4 GM/DL (12.0-16.0); Immature Granulocytes % 0.7 %; Immature Granulocytes Absolute 0.07 #; Lymphocytes # 1.5 10*3/uL (1.4-4.0); Lymphocytes % 15.3 % (21.3-54.2); Mean Corpuscular HGB Conc 32.8 GM/DL (32-36); Mean Corpuscular Hemoglobin 30 PG (27-34); Mean Corpuscular Volume 90.5 FL (87-102); Monocytes # 0.9 10*3/uL (0.11-0.8); Monocytes % 9.3 % (1.7-12.7); Neutrophils # 7.2 10*3/uL (1.4-7.4); Neutrophils % 72.2 % (38.7-73.9); Platelet Count 165 T/CUMM (130-400); Red Blood Count 4.51 MC/CUMM (3.8-5.5); Red Cell Distribution Width 14.6 % (9.3-17.3)
[2018-05-05 18:43] LABS: PT Patient Result 11.1 SECS; Partial Thromboplastin Time 24.6 SECS (0-40)
[2018-05-05 18:45] LABS: Apearance,Urine Slightly Hazy (Clear); Bilirubin,Urine Negative (Negative); Blood, Urine Large mg/dL (Negative); Glucose,Urine (UA) 50 mg/dL (Negative); Ketones,Urine Negative (Negative); Mucus,Urine Occasional /LPF (Occasional); Nitrite,Urine Negative (Negative); Protein,Urine Negative; RBC,Urine 47 /HPF (0-4); Squamous Epithelial Cell,Urine Occasional /HPF (0-10); Urine Color Yellow (Yellow); Urine Urobilinogen < 2.0 EU/DL (0.2-1.0); WBC,Urine 32 /HPF (0-6)
[2018-05-05] MEDS ORDERED: LEVOFLOXACIN INJ 750 MG in PREMIX 1 EACH IV STA (18:52)
[2018-05-05 19:08] LABS: Alanine Aminotransferase 17 U/L (13-56); Alkaline Phosphatase 82 U/L (45-117); Aspartate Amino Transferase 17 U/L (0-37); Blood Urea Nitrogen 41 MG/DL (7-18); Calcium 9.3 MG/DL (8.5-10.1); Glucose 185 MG/DL (74-106); Osmolality,Calculated 280.4 MOS/KG (273-304); Sodium 133 MMOL/L (136-145); Total Protein 7.6 G/DL (6.4-8.3); Troponin I < 0.015 NG/ML (0.00-0.045)
[2018-05-05] MEDS ORDERED: ONDANSETRON 4 MG/2 ML VIAL IV PRN (21:29)
[2018-05-05] MEDS ORDERED: SODIUM CHLORIDE 0.45% 1,000 ML IV SCH (21:29)
[2018-05-05] MEDS ORDERED: ACETAMINOPHEN 325 MG TABLET PO PRN (21:29)
[2018-05-05] MEDS: GABAPENTIN 100 MG CAPSULE PO SCH (23:45)
[2018-05-05] MEDS: MEMANTINE 10 MG TABLET PO SCH (23:45)
[2018-05-05] MEDS: RIVASTIGMINE 9.5 MG/24 HR PATCH TRANSDERM SCH (23:45)
[2018-05-06 04:49] LABS: Basophils # 0.1 10*3/uL (0.0-0.2); Basophils % 0.5 % (0.0-0.8); Eosinophils # 0.2 10*3/uL (0.0-0.87); Eosinophils % 2.6 % (0.00-10.9); Hematocrit 39.8 VOL% (35.7-47.0); Hemoglobin 13.1 GM/DL (12.0-16.0); Immature Granulocytes % 0.8 %; Immature Granulocytes Absolute 0.07 #; Lymphocytes # 1.5 10*3/uL (1.4-4.0); Lymphocytes % 16.4 % (21.3-54.2); Mean Corpuscular HGB Conc 32.9 GM/DL (32-36); Mean Corpuscular Hemoglobin 29 PG (27-34); Mean Corpuscular Volume 89.4 FL (87-102); Mean Platelet Volume 11.3 FL (9.6-12.0); Monocytes # 0.9 10*3/uL (0.11-0.8); Monocytes % 10.3 % (1.7-12.7); Neutrophils # 6.3 10*3/uL (1.4-7.4); Neutrophils % 69.4 % (38.7-73.9); Platelet Count 162 T/CUMM (130-400); Red Blood Count 4.45 MC/CUMM (3.8-5.5); Red Cell Distribution Width 14.3 % (9.3-17.3); White Blood Count 9.1 T/CUMM (4-12)
[2018-05-06 05:02] LABS: Calcium 8.8 MG/DL (8.5-10.1); Potassium 4.1 MMOL/L (3.5-5.1); Risk Ratio 3.69; VLDL CHOLESTEROL 19.8 MG/DL
[2018-05-06] MEDS: PANTOPRAZOLE 40 MG TABLET PO SCH (09:12)
[2018-05-06] MEDS: MEMANTINE 10 MG TABLET PO SCH ×2 (09:12→20:50)
[2018-05-06] MEDS: amLODIPine 5 MG TABLET PO SCH (09:12)
[2018-05-06] MEDS: GABAPENTIN 100 MG CAPSULE PO SCH ×2 (16:23→20:49)
[2018-05-06] MEDS: RIVASTIGMINE 9.5 MG/24 HR PATCH TRANSDERM SCH (20:50)
[2018-05-06] MEDS ORDERED: LEVOFLOXACIN INJ 500 MG in PREMIX 1 EACH IV SCH (21:00)
[2018-05-07] MEDS: PANTOPRAZOLE 40 MG TABLET PO SCH (08:16)
[2018-05-07] MEDS: MEMANTINE 10 MG TABLET PO SCH ×2 (08:16→21:45)
[2018-05-07] MEDS: amLODIPine 5 MG TABLET PO SCH (08:16)
[2018-05-07] MEDS: QUEtiapine 25 MG TABLET PO SCH ×2 (10:35→21:45)
[2018-05-07] MEDS: PIPERACILLIN/TAZOBACTAM 3,375 MG in SODIUM CHLORIDE 0.9% 100 ML IV SCH ×2 (12:03→20:04)
[2018-05-07] MEDS: GABAPENTIN 100 MG CAPSULE PO SCH ×2 (16:18→21:45)
[2018-05-07] MEDS: RIVASTIGMINE 9.5 MG/24 HR PATCH TRANSDERM SCH (21:18)
[2018-05-07] MEDS: ATORVASTATIN 40 MG TABLET PO SCH (21:44)
[2018-05-08] MEDS: PIPERACILLIN/TAZOBACTAM 3,375 MG in SODIUM CHLORIDE 0.9% 100 ML IV SCH ×3 (04:28→20:52)
[2018-05-08] MEDS: PANTOPRAZOLE 40 MG TABLET PO SCH (09:50)
[2018-05-08] MEDS: MEMANTINE 10 MG TABLET PO SCH ×2 (09:50→21:04)
[2018-05-08] MEDS: amLODIPine 5 MG TABLET PO SCH (09:50)
[2018-05-08] MEDS: QUEtiapine 25 MG TABLET PO SCH ×2 (09:51→21:04)
[2018-05-08] MEDS ORDERED: GLUCAGON 1 MG VIAL IM PRN (13:47)
[2018-05-08] MEDS ORDERED: DEXTROSE 50% 25 GM/50 ML SYRINGE IV PRN (13:47)
[2018-05-08] MEDS: GABAPENTIN 100 MG CAPSULE PO SCH ×2 (16:18→21:04)
[2018-05-08] MEDS: INSULIN LISPRO 100 UNIT/ML SUBCUT SCH ×2 (16:27→21:03)
[2018-05-08] MEDS: RIVASTIGMINE 9.5 MG/24 HR PATCH TRANSDERM SCH (21:03)
[2018-05-08] MEDS: ATORVASTATIN 40 MG TABLET PO SCH (21:04)
[2018-05-09] MEDS: PIPERACILLIN/TAZOBACTAM 3,375 MG in SODIUM CHLORIDE 0.9% 100 ML IV SCH ×3 (03:59→23:41)
[2018-05-09] MEDS: INSULIN LISPRO 100 UNIT/ML SUBCUT SCH ×4 (07:49→23:26)
[2018-05-09] MEDS: glipiZIDE 5 MG TABLET PO SCH (07:50)
[2018-05-09] MEDS: MEMANTINE 10 MG TABLET PO SCH ×2 (08:34→23:29)
[2018-05-09] MEDS: PANTOPRAZOLE 40 MG TABLET PO SCH (08:34)
[2018-05-09] MEDS: amLODIPine 5 MG TABLET PO SCH (08:34)
[2018-05-09] MEDS: QUEtiapine 25 MG TABLET PO SCH ×3 (08:34→23:28)
[2018-05-09] MEDS: GABAPENTIN 100 MG CAPSULE PO SCH ×2 (15:50→23:28)
[2018-05-09] MEDS: TEMAZEPAM 15 MG CAPSULE PO SCH (23:28)
[2018-05-09] MEDS: ATORVASTATIN 40 MG TABLET PO SCH (23:29)
[2018-05-09] MEDS: RIVASTIGMINE 9.5 MG/24 HR PATCH TRANSDERM SCH (23:29)
[2018-05-10] MEDS: glipiZIDE 5 MG TABLET PO SCH (08:49)
[2018-05-10] MEDS: amLODIPine 5 MG TABLET PO SCH (08:50)
[2018-05-10] MEDS: QUEtiapine 25 MG TABLET PO SCH ×3 (08:50→21:00)
[2018-05-10] MEDS: PIPERACILLIN/TAZOBACTAM 3,375 MG in SODIUM CHLORIDE 0.9% 100 ML IV SCH ×3 (08:50→23:16)
[2018-05-10] MEDS: MEMANTINE 10 MG TABLET PO SCH ×2 (08:50→21:00)
[2018-05-10] MEDS: PANTOPRAZOLE 40 MG TABLET PO SCH (08:50)
[2018-05-10] MEDS: INSULIN LISPRO 100 UNIT/ML SUBCUT SCH ×4 (08:58→21:01)
[2018-05-10] MEDS: GABAPENTIN 100 MG CAPSULE PO SCH ×2 (15:57→21:00)
[2018-05-10] MEDS: RIVASTIGMINE 9.5 MG/24 HR PATCH TRANSDERM SCH (21:00)
[2018-05-10] MEDS: ATORVASTATIN 40 MG TABLET PO SCH (21:00)
[2018-05-10] MEDS: TEMAZEPAM 15 MG CAPSULE PO SCH (21:00)
[2018-05-11] MEDS: PIPERACILLIN/TAZOBACTAM 3,375 MG in SODIUM CHLORIDE 0.9% 100 ML IV SCH (08:14)
[2018-05-11] MEDS: MEMANTINE 10 MG TABLET PO SCH (08:15)
[2018-05-11] MEDS: QUEtiapine 25 MG TABLET PO SCH (08:15)
[2018-05-11] MEDS: amLODIPine 5 MG TABLET PO SCH (08:15)
[2018-05-11] MEDS: glipiZIDE 5 MG TABLET PO SCH (08:15)
[2018-05-11] MEDS: PANTOPRAZOLE 40 MG TABLET PO SCH (08:15)
[2018-05-11] MEDS: INSULIN LISPRO 100 UNIT/ML SUBCUT SCH ×2 (09:20→12:10)
[2018-05-11 11:58] VITALS: BP 149/59
== END 2018-05-11 14:15 | DRG 65 ==
LOC: N.ED 17:03 → SUATTDRO 20:22 → N.EDINP 20:22 → N.3E 20:57
PROVIDERS: ADMIT Emergency Medicine; ATTEND Internal Medicine

== ENCOUNTER 2018-07-10 11:19 | Inpatient (IN) ==
[2018-07-10 15:20] LABS: Basophils # 0.1 10*3/uL (0.0-0.2); Basophils % 0.4 % (0.0-0.8); Eosinophils % 0.1 % (0.00-10.9); Hematocrit 44.3 VOL% (35.7-47.0); Hemoglobin 14.2 GM/DL (12.0-16.0); Immature Granulocytes % 1.3 %; Lymphocytes # 0.9 10*3/uL (1.4-4.0); Lymphocytes % 5.9 % (21.3-54.2); Mean Corpuscular HGB Conc 32.1 GM/DL (32-36); Mean Corpuscular Volume 93.9 FL (87-102); Mean Platelet Volume 10.7 FL (9.6-12.0); Monocytes % 4.3 % (1.7-12.7); Platelet Count 171 T/CUMM (130-400); Red Blood Count 4.72 MC/CUMM (3.8-5.5); Red Cell Distribution Width 14.4 % (9.3-17.3); White Blood Count 15.9 T/CUMM (4-12)
[2018-07-10 15:29] LABS: PT Patient Result 10.8 SECS
[2018-07-10] MEDS ORDERED: LACTULOSE 20 GM/30 ML UDCUP PO PRN (15:42)
[2018-07-10] MEDS ORDERED: ONDANSETRON 4 MG/2 ML VIAL IV PRN (15:42)
[2018-07-10] MEDS ORDERED: DEXTROSE 50% 25 GM/50 ML SYRINGE IV PRN (15:42)
[2018-07-10] MEDS ORDERED: DOCUSATE SODIUM 100 MG CAPSULE PO PRN (15:42)
[2018-07-10] MEDS ORDERED: GLUCAGON 1 MG VIAL IM PRN (15:42)
[2018-07-10 15:43] LABS: Albumin 3.6 G/DL (3.4-5.0); Bilirubin,Total 1.2 MG/DL (0.2-1.0); Calcium 10.1 MG/DL (8.5-10.1); Osmolality,Calculated 275.2 MOS/KG (273-304); Total Protein 8.3 G/DL (6.4-8.3)
[2018-07-10 15:56] LABS: Apearance,Urine CLOUDY (Clear); Bacteria,Urine Few /HPF (Few); Bilirubin,Urine Negative (Negative); Blood, Urine Small mg/dL (Negative); Glucose,Urine (UA) Negative (Negative); Ketones,Urine 5 mg/dL (Negative); Mucus,Urine Occasional /LPF (Occasional); Nitrite,Urine Negative (Negative); Protein,Urine 30 MG/DL; Urine Color Yellow (Yellow); Urine Specific Gravity 1.011 (1.001-1.035); Urine Urobilinogen < 2.0 EU/DL (0.2-1.0); WBC,Urine 1200 /HPF (0-6)
[2018-07-10 17:08] LABS: Risk Ratio 4.98; Thyroid Stimulating Hormone 1.12 uIU/ml (0.358-3.74)
[2018-07-10] MEDS: INSULIN LISPRO 100 UNIT/ML SUBCUT SCH ×2 (17:32→21:00)
[2018-07-10] MEDS: SODIUM CHLORIDE 0.9% 1,000 ML IV SCH (17:33)
[2018-07-10] MEDS: LORazepam 2 MG/1 ML VIAL IV PRN (19:10)
[2018-07-10] MEDS ORDERED: LEVOFLOXACIN INJ 250 MG in PREMIX 1 EACH IV SCH (19:30)
[2018-07-10] MEDS: LEVOFLOXACIN INJ 500 MG in PREMIX 1 EACH IV SCH (20:25)
[2018-07-10] MEDS: OMEGA 3 ACID ETHYL ESTERS 1 GM CAPSULE PO SCH (21:00)
[2018-07-10] MEDS: ATORVASTATIN 20 MG TABLET PO SCH (21:00)
[2018-07-10] MEDS: GABAPENTIN 100 MG CAPSULE PO SCH (22:25)
[2018-07-10] MEDS: QUEtiapine 25 MG TABLET PO SCH (22:26)
[2018-07-10] MEDS: MEMANTINE 10 MG TABLET PO SCH (22:27)
[2018-07-11] MEDS: LORazepam 2 MG/1 ML VIAL IV PRN ×2 (01:33→17:37)
[2018-07-11 04:58] LABS: Basophils % 0.3 % (0.0-0.8); Eosinophils # 0.2 10*3/uL (0.0-0.87); Eosinophils % 1.7 % (0.00-10.9); Hematocrit 39.6 VOL% (35.7-47.0); Hemoglobin 12.8 GM/DL (12.0-16.0); Immature Granulocytes % 0.6 %; Immature Granulocytes Absolute 0.07 #; Lymphocytes # 1.1 10*3/uL (1.4-4.0); Lymphocytes % 9.6 % (21.3-54.2); Mean Corpuscular HGB Conc 32.3 GM/DL (32-36); Mean Corpuscular Volume 92.7 FL (87-102); Mean Platelet Volume 10.8 FL (9.6-12.0); Monocytes % 4.9 % (1.7-12.7); Neutrophils % 82.9 % (38.7-73.9); Platelet Count 166 T/CUMM (130-400); Red Blood Count 4.27 MC/CUMM (3.8-5.5); Red Cell Distribution Width 14.6 % (9.3-17.3); White Blood Count 11.5 T/CUMM (4-12)
[2018-07-11 05:19] LABS: Calcium 8.7 MG/DL (8.5-10.1); Osmolality,Calculated 280.8 MOS/KG (273-304)
[2018-07-11] MEDS: INSULIN LISPRO 100 UNIT/ML SUBCUT SCH ×4 (08:03→22:27)
[2018-07-11] MEDS: OMEGA 3 ACID ETHYL ESTERS 1 GM CAPSULE PO SCH ×2 (10:04→21:35)
[2018-07-11] MEDS: QUEtiapine 25 MG TABLET PO SCH ×3 (10:05→21:35)
[2018-07-11] MEDS: PANTOPRAZOLE 40 MG TABLET PO SCH (10:05)
[2018-07-11] MEDS: MEMANTINE 10 MG TABLET PO SCH ×2 (10:05→21:35)
[2018-07-11] MEDS: RIVASTIGMINE 9.5 MG/24 HR PATCH TRANSDERM SCH (10:31)
[2018-07-11] MEDS ORDERED: VANCOMYCIN 1,000 MG VIAL ONE (13:46)
[2018-07-11] MEDS ORDERED: ACETAMINOPHEN 1,000 MG/100 ML VIAL IV ONE (14:13)
[2018-07-11] MEDS ORDERED: PROPOFOL 200 MG/20 ML VIAL IV ONE (15:47)
[2018-07-11] MEDS ORDERED: fentaNYL 100 MCG/2 ML VIAL ONE (15:48)
[2018-07-11] MEDS ORDERED: TRANEXAMIC ACID 1,000 MG/10 ML VIAL ONE (15:48)
[2018-07-11] MEDS ORDERED: PHENYLEPHRINE 1 MG/10 ML SYRINGE IV ONE (15:48)
[2018-07-11] MEDS ORDERED: ROCURONIUM 100 MG/10 ML VIAL IV ONE (15:48)
[2018-07-11] MEDS ORDERED: SEVOFLURANE 1 UNIT/15 MINUTE INH ONE (15:48)
[2018-07-11] MEDS ORDERED: ONDANSETRON 4 MG/2 ML VIAL ONE (15:48)
[2018-07-11] MEDS ORDERED: MIDAZOLAM 2 MG/2 ML VIAL ONE (15:48)
[2018-07-11] MEDS: GABAPENTIN 100 MG CAPSULE PO SCH ×2 (16:53→21:35)
[2018-07-11 17:31] LABS: Basophils % 0.3 % (0.0-0.8); Eosinophils # 0.1 10*3/uL (0.0-0.87); Eosinophils % 0.8 % (0.00-10.9); Hematocrit 39.4 VOL% (35.7-47.0); Hemoglobin 12.5 GM/DL (12.0-16.0); Immature Granulocytes % 0.8 %; Lymphocytes # 0.9 10*3/uL (1.4-4.0); Lymphocytes % 6.8 % (21.3-54.2); Mean Corpuscular HGB Conc 31.7 GM/DL (32-36); Neutrophils % 85.3 % (38.7-73.9); Platelet Count 152 T/CUMM (130-400); Red Blood Count 4.19 MC/CUMM (3.8-5.5); Red Cell Distribution Width 14.7 % (9.3-17.3); White Blood Count 12.7 T/CUMM (4-12)
[2018-07-11] MEDS: SODIUM CHLORIDE 0.9% 1,000 ML IV SCH (17:41)
[2018-07-11] MEDS: LEVOFLOXACIN INJ 500 MG in PREMIX 1 EACH IV SCH (21:34)
[2018-07-11] MEDS: ATORVASTATIN 20 MG TABLET PO SCH (21:35)
[2018-07-11] MEDS: ACETAMINOPHEN 325 MG TABLET PO PRN (23:37)
[2018-07-12 05:41] LABS: Basophils % 0.3 % (0.0-0.8); Eosinophils # 0.1 10*3/uL (0.0-0.87); Eosinophils % 0.7 % (0.00-10.9); Hematocrit 38.7 VOL% (35.7-47.0); Hemoglobin 12.4 GM/DL (12.0-16.0); Immature Granulocytes % 0.8 %; Immature Granulocytes Absolute 0.09 #; Lymphocytes % 8.2 % (21.3-54.2); Mean Corpuscular Volume 94.2 FL (87-102); Mean Platelet Volume 11.3 FL (9.6-12.0); Monocytes % 5.8 % (1.7-12.7); Neutrophils % 84.2 % (38.7-73.9); Platelet Count 147 T/CUMM (130-400); Red Blood Count 4.11 MC/CUMM (3.8-5.5); Red Cell Distribution Width 14.9 % (9.3-17.3); White Blood Count 11.8 T/CUMM (4-12)
[2018-07-12 05:51] LABS: Calcium 8.5 MG/DL (8.5-10.1); Osmolality,Calculated 285.7 MOS/KG (273-304)
[2018-07-12] MEDS: ENOXAPARIN 30 MG/0.3 ML SYRINGE SUBCUT SCH (06:05)
[2018-07-12] MEDS: OMEGA 3 ACID ETHYL ESTERS 1 GM CAPSULE PO SCH ×2 (09:43→21:32)
[2018-07-12] MEDS: QUEtiapine 25 MG TABLET PO SCH ×3 (09:43→21:32)
[2018-07-12] MEDS: INSULIN LISPRO 100 UNIT/ML SUBCUT SCH ×4 (09:43→21:32)
[2018-07-12] MEDS: MEMANTINE 10 MG TABLET PO SCH ×2 (09:43→21:32)
[2018-07-12] MEDS: PANTOPRAZOLE 40 MG TABLET PO SCH (09:43)
[2018-07-12] MEDS: RIVASTIGMINE 9.5 MG/24 HR PATCH TRANSDERM SCH (09:46)
[2018-07-12] MEDS: GABAPENTIN 100 MG CAPSULE PO SCH ×2 (16:19→21:32)
[2018-07-12] MEDS: SODIUM CHLORIDE 0.9% 1,000 ML IV SCH (19:25)
[2018-07-12] MEDS: ATORVASTATIN 20 MG TABLET PO SCH (21:32)
[2018-07-12] MEDS: NITROFURANTOIN MACRO/MONO 100 MG CAPSULE PO SCH (21:32)
[2018-07-13] MEDS: ENOXAPARIN 30 MG/0.3 ML SYRINGE SUBCUT SCH (06:03)
[2018-07-13] MEDS: SODIUM CHLORIDE 0.9% 1,000 ML IV SCH (06:14)
[2018-07-13] MEDS ORDERED: FUROSEMIDE 20 MG/2 ML VIAL IV ONE (07:07)
[2018-07-13] MEDS: INSULIN LISPRO 100 UNIT/ML SUBCUT SCH ×4 (07:56→21:06)
[2018-07-13] MEDS: RIVASTIGMINE 9.5 MG/24 HR PATCH TRANSDERM SCH (09:13)
[2018-07-13] MEDS: MEMANTINE 10 MG TABLET PO SCH ×2 (09:14→21:10)
[2018-07-13] MEDS: NITROFURANTOIN MACRO/MONO 100 MG CAPSULE PO SCH ×2 (09:14→21:09)
[2018-07-13] MEDS: PANTOPRAZOLE 40 MG TABLET PO SCH (09:14)
[2018-07-13] MEDS: QUEtiapine 25 MG TABLET PO SCH ×3 (09:14→21:10)
[2018-07-13] MEDS: OMEGA 3 ACID ETHYL ESTERS 1 GM CAPSULE PO SCH ×2 (09:14→21:10)
[2018-07-13] MEDS: GABAPENTIN 100 MG CAPSULE PO SCH ×2 (16:31→21:10)
[2018-07-13] MEDS: ATORVASTATIN 20 MG TABLET PO SCH (21:09)
[2018-07-14 05:04] LABS: Basophils % 0.3 % (0.0-0.8); Eosinophils # 0.2 10*3/uL (0.0-0.87); Eosinophils % 1.7 % (0.00-10.9); Hematocrit 33.4 VOL% (35.7-47.0); Hemoglobin 10.5 GM/DL (12.0-16.0); Immature Granulocytes % 0.9 %; Immature Granulocytes Absolute 0.08 #; Lymphocytes # 1.4 10*3/uL (1.4-4.0); Lymphocytes % 15.7 % (21.3-54.2); Mean Corpuscular HGB Conc 31.4 GM/DL (32-36); Mean Corpuscular Volume 95.4 FL (87-102); Mean Platelet Volume 11.2 FL (9.6-12.0); Monocytes % 10.5 % (1.7-12.7); Neutrophils % 70.9 % (38.7-73.9); Platelet Count 125 T/CUMM (130-400); Red Cell Distribution Width 14.9 % (9.3-17.3); White Blood Count 8.9 T/CUMM (4-12)
[2018-07-14 05:29] LABS: Calcium 8.8 MG/DL (8.5-10.1); Osmolality,Calculated 296.8 MOS/KG (273-304)
[2018-07-14] MEDS: ENOXAPARIN 30 MG/0.3 ML SYRINGE SUBCUT SCH (06:40)
[2018-07-14] MEDS: PANTOPRAZOLE 40 MG TABLET PO SCH (08:23)
[2018-07-14] MEDS: MEMANTINE 10 MG TABLET PO SCH ×2 (08:23→20:37)
[2018-07-14] MEDS: OMEGA 3 ACID ETHYL ESTERS 1 GM CAPSULE PO SCH ×2 (08:23→20:39)
[2018-07-14] MEDS: INSULIN LISPRO 100 UNIT/ML SUBCUT SCH ×4 (08:23→20:38)
[2018-07-14] MEDS: RIVASTIGMINE 9.5 MG/24 HR PATCH TRANSDERM SCH (08:23)
[2018-07-14] MEDS: NITROFURANTOIN MACRO/MONO 100 MG CAPSULE PO SCH ×2 (08:23→20:37)
[2018-07-14] MEDS: QUEtiapine 25 MG TABLET PO SCH ×3 (08:23→20:37)
[2018-07-14] MEDS ORDERED: TUBERCULIN SKIN TEST 0.1 ML SYRINGE INTRADERM ONE (10:45)
[2018-07-14] MEDS: GABAPENTIN 100 MG CAPSULE PO SCH ×2 (15:04→20:37)
[2018-07-14] MEDS: ACETAMINOPHEN 325 MG TABLET PO PRN (16:50)
[2018-07-14 20:05] VITALS: BP 123/61
[2018-07-14] MEDS: ATORVASTATIN 20 MG TABLET PO SCH (20:37)
== END 2018-07-14 20:55 | disposition swing bed (61) | DRG 470 ==
LOC: N.ED 11:19 → SUATTDRO 15:42 → N.EDINP 15:42 → N.3E 17:00 → UNDODISIN 07-12 20:52
PROVIDERS: ADMIT Internal Medicine; ATTEND Hospitalist

== ENCOUNTER 2018-11-13 11:54 | Inpatient (IN) ==
[2018-11-13 12:41] LABS: Basophils # 0.1 10*3/uL (0.0-0.2); Basophils % 0.4 % (0.0-0.8); Eosinophils # 0.1 10*3/uL (0.0-0.87); Eosinophils % 0.8 % (0.00-10.9); Hematocrit 43.9 VOL% (35.7-47.0); Hemoglobin 14.1 GM/DL (12.0-16.0); Immature Granulocytes % 0.6 %; Immature Granulocytes Absolute 0.09 #; Lymphocytes # 0.7 10*3/uL (1.4-4.0); Lymphocytes % 4.5 % (21.3-54.2); Mean Corpuscular HGB Conc 32.1 GM/DL (32-36); Mean Corpuscular Volume 97.1 FL (87-102); Mean Platelet Volume 11.3 FL (9.6-12.0); Monocytes % 7.6 % (1.7-12.7); Neutrophils % 86.1 % (38.7-73.9); Platelet Count 182 T/CUMM (130-400); Red Blood Count 4.52 MC/CUMM (3.8-5.5); Red Cell Distribution Width 14.9 % (9.3-17.3); White Blood Count 14.8 T/CUMM (4-12)
[2018-11-13 12:45] LABS: PT Patient Result 10.4 SECS (9.6-12.2); Partial Thromboplastin Time < 21.0 SECS (20.8-36.0)
[2018-11-13 13:06] LABS: Alanine Aminotransferase 18 U/L (13-56); Albumin 3.4 G/DL (3.4-5.0); Alkaline Phosphatase 74 U/L (45-117); Aspartate Amino Transferase 22 U/L (0-37); Blood Urea Nitrogen 26 MG/DL (7-18); Calcium 9.5 MG/DL (8.5-10.1); Glucose 201 MG/DL (74-106); Osmolality,Calculated 287.5 MOS/KG (273-304); Troponin I < 0.015 NG/ML (0.00-0.045)
[2018-11-13 13:12] LABS: Apearance,Urine CLOUDY (Clear); Bilirubin,Urine Negative (Negative); Blood, Urine Small mg/dL (Negative); Glucose,Urine (UA) Negative (Negative); Ketones,Urine Negative (Negative); Nitrite,Urine Positive (Negative); Protein,Urine 100 MG/DL; Urine Color Yellow (Yellow); Urine Specific Gravity 1.017 (1.001-1.035); Urine Urobilinogen < 2.0 EU/DL (0.2-1.0); WBC,Urine 1665 /HPF (0-6)
[2018-11-13 13:21] LABS: Band Neutrophils 47 % (0-10); Eosinophils 2 % (0-10); Lymphocytes 4 % (20-55); Platelet Estimate Normal; Segmented Neutrophils 38 % (50-85); Total Cells Counted 100
[2018-11-13 13:22] LABS: Anisocytosis 1+; Macrocytosis 1+
[2018-11-13 13:23] LABS: Barbiturates Screen,Urine Negative (Negative); Benzodiazepines Screen,Urine Positive (Negative); Cannabinoid Screen,Urine Negative (Negative); Opiate Screen,Urine Negative (Negative); Phencyclidine Screen,Urine Negative (Negative)
[2018-11-13] MEDS ORDERED: LEVOFLOXACIN INJ 750 MG in PREMIX 1 EACH IV STA (13:29)
[2018-11-13] MEDS ORDERED: LORazepam 2 MG/1 ML VIAL IV STA (14:34)
[2018-11-13] MEDS ORDERED: DEXTROSE 10% 25 GM/250 ML BAG IV PRN (14:35)
[2018-11-13] MEDS ORDERED: GLUCAGON 1 MG VIAL IM PRN (14:35)
[2018-11-13] MEDS ORDERED: ACETAMINOPHEN 325 MG TABLET PO PRN (14:35)
[2018-11-13] MEDS ORDERED: ONDANSETRON 4 MG/2 ML VIAL IV PRN (14:35)
[2018-11-13] MEDS: SODIUM CHLORIDE 0.9% 1,000 ML IV SCH (16:00)
[2018-11-13] MEDS: QUEtiapine 25 MG TABLET PO SCH ×2 (17:06→21:10)
[2018-11-13] MEDS: INSULIN LISPRO 100 UNIT/ML SUBCUT SCH ×2 (17:08→20:58)
[2018-11-13] MEDS: ENOXAPARIN 40 MG/0.4 ML SYRINGE SUBCUT SCH (17:24)
[2018-11-13] MEDS: ATORVASTATIN 20 MG TABLET PO SCH (21:09)
[2018-11-13] MEDS: MEMANTINE 10 MG TABLET PO SCH (21:10)
[2018-11-14] MEDS: SODIUM CHLORIDE 0.9% 1,000 ML IV SCH ×3 (00:44→16:29)
[2018-11-14 05:31] LABS: Basophils % 0.1 % (0.0-0.8); Eosinophils # 0.1 10*3/uL (0.0-0.87); Eosinophils % 1.7 % (0.00-10.9); Hematocrit 35.7 VOL% (35.7-47.0); Hemoglobin 11.5 GM/DL (12.0-16.0); Immature Granulocytes % 0.4 %; Immature Granulocytes Absolute 0.03 #; Lymphocytes # 1.7 10*3/uL (1.4-4.0); Lymphocytes % 22.6 % (21.3-54.2); Mean Corpuscular HGB Conc 32.2 GM/DL (32-36); Mean Corpuscular Volume 97.3 FL (87-102); Mean Platelet Volume 11.6 FL (9.6-12.0); Monocytes % 10.5 % (1.7-12.7); Neutrophils % 64.7 % (38.7-73.9); Platelet Count 169 T/CUMM (130-400); Red Blood Count 3.67 MC/CUMM (3.8-5.5); White Blood Count 7.4 T/CUMM (4-12)
[2018-11-14 05:52] LABS: Calcium 9.2 MG/DL (8.5-10.1); Osmolality,Calculated 290.1 MOS/KG (273-304); Risk Ratio 3.42; VLDL CHOLESTEROL 18.2 MG/DL
[2018-11-14] MEDS: INSULIN LISPRO 100 UNIT/ML SUBCUT SCH ×4 (07:51→21:00)
[2018-11-14] MEDS: MEMANTINE 10 MG TABLET PO SCH ×2 (08:52→21:49)
[2018-11-14] MEDS: QUEtiapine 25 MG TABLET PO SCH ×3 (08:52→21:49)
[2018-11-14] MEDS: PANTOPRAZOLE 40 MG TABLET PO SCH (08:52)
[2018-11-14] MEDS ORDERED: LEVOFLOXACIN INJ 750 MG in PREMIX 1 EACH IV SCH (13:00)
[2018-11-14] MEDS ORDERED: LORazepam 2 MG/1 ML VIAL IV PRN (15:38)
[2018-11-14] MEDS: ENOXAPARIN 40 MG/0.4 ML SYRINGE SUBCUT SCH (16:28)
[2018-11-14] MEDS: GABAPENTIN 100 MG CAPSULE PO SCH (21:48)
[2018-11-14] MEDS: TEMAZEPAM 15 MG CAPSULE PO SCH (21:49)
[2018-11-14] MEDS: RIVASTIGMINE 9.5 MG/24 HR PATCH TRANSDERM SCH (21:49)
[2018-11-14] MEDS: ATORVASTATIN 20 MG TABLET PO SCH (21:49)
[2018-11-15 05:53] LABS: Basophils % 0.2 % (0.0-0.8); Eosinophils # 0.2 10*3/uL (0.0-0.87); Eosinophils % 2.1 % (0.00-10.9); Hematocrit 38.6 VOL% (35.7-47.0); Hemoglobin 12.4 GM/DL (12.0-16.0); Immature Granulocytes % 0.4 %; Immature Granulocytes Absolute 0.03 #; Lymphocytes # 1.7 10*3/uL (1.4-4.0); Mean Corpuscular HGB Conc 32.1 GM/DL (32-36); Mean Corpuscular Volume 95.8 FL (87-102); Mean Platelet Volume 11.2 FL (9.6-12.0); Monocytes % 10.8 % (1.7-12.7); Neutrophils % 65.5 % (38.7-73.9); Platelet Count 181 T/CUMM (130-400); Red Blood Count 4.03 MC/CUMM (3.8-5.5); Red Cell Distribution Width 14.5 % (9.3-17.3); White Blood Count 8.1 T/CUMM (4-12)
[2018-11-15 05:59] LABS: Calcium 9.8 MG/DL (8.5-10.1); Osmolality,Calculated 284.3 MOS/KG (273-304)
[2018-11-15] MEDS: MEMANTINE 10 MG TABLET PO SCH ×2 (10:46→23:15)
[2018-11-15] MEDS: PANTOPRAZOLE 40 MG TABLET PO SCH (10:46)
[2018-11-15] MEDS: INSULIN LISPRO 100 UNIT/ML SUBCUT SCH ×4 (10:46→23:16)
[2018-11-15] MEDS: QUEtiapine 25 MG TABLET PO SCH ×3 (10:46→23:16)
[2018-11-15] MEDS: GABAPENTIN 100 MG CAPSULE PO SCH ×2 (10:46→23:15)
[2018-11-15] MEDS ORDERED: TUBERCULIN SKIN TEST 0.1 ML SYRINGE INTRADERM ONE (11:44)
[2018-11-15] MEDS: ERTAPENEM 1,000 MG in SODIUM CHLORIDE 0.9% 100 ML IV SCH (14:39)
[2018-11-15] MEDS: ENOXAPARIN 40 MG/0.4 ML SYRINGE SUBCUT SCH (17:25)
[2018-11-15] MEDS: ATORVASTATIN 20 MG TABLET PO SCH (23:15)
[2018-11-15] MEDS: RIVASTIGMINE 9.5 MG/24 HR PATCH TRANSDERM SCH (23:16)
[2018-11-15] MEDS: TEMAZEPAM 15 MG CAPSULE PO SCH (23:16)
[2018-11-16 04:48] LABS: Basophils % 0.5 % (0.0-0.8); Eosinophils # 0.2 10*3/uL (0.0-0.87); Eosinophils % 2.8 % (0.00-10.9); Hematocrit 36.9 VOL% (35.7-47.0); Immature Granulocytes % 0.3 %; Immature Granulocytes Absolute 0.02 #; Lymphocytes # 2.2 10*3/uL (1.4-4.0); Lymphocytes % 35.8 % (21.3-54.2); Mean Corpuscular HGB Conc 32.5 GM/DL (32-36); Mean Corpuscular Volume 94.6 FL (87-102); Monocytes % 11.3 % (1.7-12.7); Neutrophils % 49.3 % (38.7-73.9); Platelet Count 187 T/CUMM (130-400); Red Cell Distribution Width 14.3 % (9.3-17.3); White Blood Count 6.1 T/CUMM (4-12)
[2018-11-16 05:40] LABS: Calcium 9.8 MG/DL (8.5-10.1); Osmolality,Calculated 287.1 MOS/KG (273-304)
[2018-11-16] MEDS ORDERED: MAGNESIUM HYDROXIDE SUSP 30 ML UDCUP PO ONE (07:23)
[2018-11-16] MEDS: QUEtiapine 25 MG TABLET PO SCH (09:03)
[2018-11-16] MEDS: MEMANTINE 10 MG TABLET PO SCH (09:03)
[2018-11-16] MEDS: PANTOPRAZOLE 40 MG TABLET PO SCH (09:03)
[2018-11-16] MEDS: INSULIN LISPRO 100 UNIT/ML SUBCUT SCH ×2 (09:03→13:16)
[2018-11-16] MEDS: GABAPENTIN 100 MG CAPSULE PO SCH (09:03)
[2018-11-16 12:18] VITALS: BP 133/60
[2018-11-16] MEDS: SODIUM CHLORIDE 0.9% 1,000 ML IV SCH (13:16)
[2018-11-16] MEDS: ERTAPENEM 1,000 MG in SODIUM CHLORIDE 0.9% 100 ML IV SCH (13:17)
== END 2018-11-16 12:32 | disposition home health service (06) | DRG 689 ==
LOC: EDBD → EDUNIT# → N.ED 11:54 → N.EDINP 14:35 → SUATTDRO 14:35 → N.EDINP 15:35 → N.5E 16:09
PROVIDERS: ADMIT Hospitalist; ATTEND Hospitalist

== ENCOUNTER 2019-05-24 13:29 | Inpatient (IN) ==
[2019-05-24] MEDS ORDERED: ONDANSETRON 4 MG/2 ML VIAL IV STA (14:07)
[2019-05-24] MEDS ORDERED: HYDROmorphone 2 MG/1 ML VIAL IV STA (14:07)
[2019-05-24 15:14] LABS: Basophils # 0.1 10*3/uL (0.0-0.2); Basophils % 0.3 % (0.0-0.8); Eosinophils % 0.1 % (0.00-10.9); Hematocrit 46.6 VOL% (35.7-47.0); Hemoglobin 15.1 GM/DL (12.0-16.0); Lymphocytes # 1.1 10*3/uL (1.4-4.0); Lymphocytes % 5.6 % (21.3-54.2); Mean Corpuscular HGB Conc 32.4 GM/DL (32-36); Mean Corpuscular Volume 94.1 FL (87-102); Mean Platelet Volume 11.3 FL (9.6-12.0); Monocytes % 4.1 % (1.7-12.7); Neutrophils % 88.9 % (38.7-73.9); Platelet Count 189 T/CUMM (130-400); Red Blood Count 4.95 MC/CUMM (3.8-5.5); Red Cell Distribution Width 13.5 % (9.3-17.3); White Blood Count 19.2 T/CUMM (4-12)
[2019-05-24 15:26] LABS: PT Patient Result 10.6 SECS (9.6-12.2); Partial Thromboplastin Time 23.8 SECS (20.8-36.0)
[2019-05-24 15:28] LABS: Albumin 3.7 G/DL (3.4-5.0); Bilirubin,Total 0.8 MG/DL (0.2-1.0); Calcium 9.9 MG/DL (8.5-10.1); Osmolality,Calculated 270.5 MOS/KG (273-304); Total Protein 8.9 G/DL (6.4-8.3)
[2019-05-24] MEDS ORDERED: VANCOMYCIN INJ 750 MG in SODIUM CHLORIDE 0.9% 250 ML IV ONE ×2 (15:46→16:00)
[2019-05-24] MEDS ORDERED: MORPHINE 4 MG/1 ML VIAL IV PRN ×3 (15:49→16:19)
[2019-05-24] MEDS ORDERED: POTASSIUM CHLORIDE RIDER 10 MEQ in PREMIX 1 EACH IV PRN ×2 (15:58→16:19)
[2019-05-24] MEDS ORDERED: CLINDAMYCIN INJ 300 MG in SODIUM CHLORIDE 0.9% 100 ML IV SCH ×2 (16:00→22:00)
[2019-05-24] MEDS ORDERED: SODIUM CHLORIDE 0.9% 1,000 ML IV SCH (16:00)
[2019-05-24 16:02] LABS: Apearance,Urine CLEAR (Clear); Bilirubin,Urine Negative (Negative); Blood, Urine Small mg/dL (Negative); Glucose,Urine (UA) Negative (Negative); Ketones,Urine Negative (Negative); Nitrite,Urine Negative (Negative); Protein,Urine 30 MG/DL; RBC,Urine 6 /HPF (0-4); Squamous Epithelial Cell,Urine Occasional /HPF (0-10); Urine Color Yellow (Yellow); Urine Specific Gravity 1.012 (1.001-1.035); Urine Urobilinogen < 2.0 EU/DL (0.2-1.0); WBC,Urine 3 /HPF (0-6)
[2019-05-24] MEDS ORDERED: BISACODYL 5 MG TABLET PO PRN (16:45)
[2019-05-24] MEDS ORDERED: ONDANSETRON 4 MG/2 ML VIAL IV PRN (16:45)
[2019-05-24] MEDS ORDERED: ACETAMINOPHEN 325 MG TABLET PO PRN (16:45)
[2019-05-24] MEDS ORDERED: DOCUSATE SODIUM 100 MG CAPSULE PO PRN (16:45)
[2019-05-24] MEDS ORDERED: GLUCAGON 1 MG VIAL IM PRN (16:45)
[2019-05-24] MEDS ORDERED: DEXTROSE 10% 250 ML BAG IV PRN (16:45)
[2019-05-24] MEDS ORDERED: LACTULOSE 20 GM/30 ML UDCUP PO PRN (16:45)
[2019-05-24] MEDS ORDERED: hydrALAZINE 20 MG/1 ML VIAL IV PRN (16:54)
[2019-05-24] MEDS ORDERED: INSULIN LISPRO 100 UNIT/ML SUBCUT SCH (18:00)
[2019-05-24] MEDS: SODIUM CHLORIDE 0.9% 1,000 ML IV SCH (20:30)
[2019-05-24] MEDS ORDERED: QUEtiapine 25 MG TABLET PO ONE (21:21)
[2019-05-24] MEDS: CLINDAMYCIN INJ 300 MG in PREMIX 1 EACH IV SCH (21:44)
[2019-05-24] MEDS: INSULIN LISPRO 100 UNIT/ML SUBCUT SCH (21:45)
[2019-05-25] MEDS: MORPHINE 4 MG/1 ML VIAL IV PRN ×3 (00:55→18:20)
[2019-05-25] MEDS: SODIUM CHLORIDE 0.9% 1,000 ML IV SCH ×2 (02:00→13:05)
[2019-05-25] MEDS: CLINDAMYCIN INJ 300 MG in PREMIX 1 EACH IV SCH ×3 (03:58→20:47)
[2019-05-25] MEDS ORDERED: VANCOMYCIN INJ 750 MG in SODIUM CHLORIDE 0.9% 250 ML IV ONE (06:30)
[2019-05-25 06:46] LABS: Basophils % 0.3 % (0.0-0.8); Eosinophils # 0.1 10*3/uL (0.0-0.87); Eosinophils % 1.1 % (0.00-10.9); Hematocrit 43.3 VOL% (35.7-47.0); Hemoglobin 14.3 GM/DL (12.0-16.0); Immature Granulocytes % 0.6 %; Immature Granulocytes Absolute 0.07 #; Lymphocytes # 1.4 10*3/uL (1.4-4.0); Lymphocytes % 11.3 % (21.3-54.2); Mean Corpuscular Volume 91.7 FL (87-102); Monocytes % 4.8 % (1.7-12.7); Neutrophils % 81.9 % (38.7-73.9); Platelet Count 154 T/CUMM (130-400); Red Blood Count 4.72 MC/CUMM (3.8-5.5); Red Cell Distribution Width 13.9 % (9.3-17.3); White Blood Count 12.1 T/CUMM (4-12)
[2019-05-25] MEDS ORDERED: TRANEXAMIC ACID 1,000 MG/10 ML VIAL ONE ×2 (06:56→10:08)
[2019-05-25] MEDS ORDERED: BUPIVACAINE SPINAL 0.75% 2 ML AMP SPINAL ONE (06:57)
[2019-05-25 07:00] LABS: Calcium 9.5 MG/DL (8.5-10.1); Osmolality,Calculated 270.5 MOS/KG (273-304)
[2019-05-25] MEDS ORDERED: LIDOCAINE 1% 5 ML VIAL ONE (07:03)
[2019-05-25] MEDS ORDERED: ROPIVACAINE 0.5% 30 ML VIAL ONE (07:03)
[2019-05-25] MEDS ORDERED: MIDAZOLAM 2 MG/2 ML VIAL ONE (07:04)
[2019-05-25] MEDS ORDERED: DEXAMETHASONE 4 MG/1 ML VIAL ONE (07:04)
[2019-05-25] MEDS ORDERED: fentaNYL 100 MCG/2 ML VIAL ONE (07:04)
[2019-05-25] MEDS: INSULIN LISPRO 100 UNIT/ML SUBCUT SCH ×4 (07:30→21:00)
[2019-05-25] MEDS: PANTOPRAZOLE 40 MG TABLET PO SCH (09:20)
[2019-05-25] MEDS ORDERED: diphenhydrAMINE CAP 25 MG CAPSULE PO PRN (09:48)
[2019-05-25] MEDS ORDERED: MAGNESIUM HYDROXIDE SUSP 30 ML UDCUP PO PRN (09:48)
[2019-05-25] MEDS ORDERED: BISACODYL 10 MG SUPP RECTAL PRN (09:48)
[2019-05-25] MEDS ORDERED: TEMAZEPAM 15 MG CAPSULE PO PRN (09:52)
[2019-05-25] MEDS ORDERED: hydrALAZINE 10 MG TABLET PO PRN (09:52)
[2019-05-25] MEDS ORDERED: Exenatide Microspheres [Bydureon] 2 MG SUBCUT SCH (10:00)
[2019-05-25] MEDS ORDERED: propofoL 200 MG/20 ML VIAL IV ONE (10:07)
[2019-05-25] MEDS ORDERED: PHENYLEPHRINE DRIP 20 MG/250 ML PREMIX IV ONE (10:07)
[2019-05-25] MEDS ORDERED: LIDOCAINE 2% 5 ML VIAL ONE (10:07)
[2019-05-25] MEDS ORDERED: SODIUM CHLORIDE 0.9% 200 ML IV ONE (10:08)
[2019-05-25] MEDS ORDERED: KETAMINE 500 MG/10 ML VIAL ONE (10:08)
[2019-05-25] MEDS: LACTATED RINGERS 1,000 ML IV SCH (11:00)
[2019-05-25] MEDS: QUEtiapine 25 MG TABLET PO SCH ×2 (17:50→20:46)
[2019-05-25] MEDS: MEMANTINE 10 MG TABLET PO SCH (20:46)
[2019-05-25] MEDS: FONDAPARINUX 2.5 MG/0.5 ML SYRINGE SUBCUT SCH (20:47)
[2019-05-25] MEDS: GABAPENTIN 100 MG CAPSULE PO SCH (20:47)
[2019-05-25] MEDS: TEMAZEPAM 7.5 MG CAPSULE PO PRN (20:48)
[2019-05-25] MEDS: RIVASTIGMINE 9.5 MG/24 HR PATCH TRANSDERM SCH (21:01)
[2019-05-25] MEDS ORDERED: VANCOMYCIN INJ 1,000 MG in SODIUM CHLORIDE 0.9% 250 ML IV ONE (22:00)
[2019-05-26] MEDS: SODIUM CHLORIDE 0.9% 1,000 ML IV SCH ×3 (00:22→17:59)
[2019-05-26] MEDS: CLINDAMYCIN INJ 300 MG in PREMIX 1 EACH IV SCH ×4 (02:59→21:24)
[2019-05-26 04:29] LABS: Basophils % 0.2 % (0.0-0.8); Eosinophils # 0.1 10*3/uL (0.0-0.87); Eosinophils % 0.6 % (0.00-10.9); Hematocrit 38.5 VOL% (35.7-47.0); Hemoglobin 12.5 GM/DL (12.0-16.0); Immature Granulocytes % 0.6 %; Immature Granulocytes Absolute 0.07 #; Lymphocytes # 1.3 10*3/uL (1.4-4.0); Lymphocytes % 10.6 % (21.3-54.2); Mean Corpuscular HGB Conc 32.5 GM/DL (32-36); Mean Corpuscular Volume 94.1 FL (87-102); Mean Platelet Volume 11.5 FL (9.6-12.0); Monocytes % 7.2 % (1.7-12.7); Neutrophils % 80.8 % (38.7-73.9); Platelet Count 143 T/CUMM (130-400); Red Blood Count 4.09 MC/CUMM (3.8-5.5); Red Cell Distribution Width 13.8 % (9.3-17.3)
[2019-05-26 05:06] LABS: Osmolality,Calculated 276.1 MOS/KG (273-304)
[2019-05-26] MEDS: MORPHINE 4 MG/1 ML VIAL IV PRN (06:09)
[2019-05-26] MEDS: LACTATED RINGERS 1,000 ML IV SCH (08:31)
[2019-05-26] MEDS: INSULIN LISPRO 100 UNIT/ML SUBCUT SCH ×4 (08:58→21:26)
[2019-05-26] MEDS: QUEtiapine 25 MG TABLET PO SCH ×3 (10:56→21:25)
[2019-05-26] MEDS: GABAPENTIN 100 MG CAPSULE PO SCH ×2 (10:56→21:25)
[2019-05-26] MEDS: PANTOPRAZOLE 40 MG TABLET PO SCH (10:56)
[2019-05-26] MEDS: MEMANTINE 10 MG TABLET PO SCH ×2 (10:56→21:25)
[2019-05-26] MEDS: FONDAPARINUX 2.5 MG/0.5 ML SYRINGE SUBCUT SCH (21:24)
[2019-05-26] MEDS: TEMAZEPAM 7.5 MG CAPSULE PO PRN (21:25)
[2019-05-26] MEDS: RIVASTIGMINE 9.5 MG/24 HR PATCH TRANSDERM SCH (21:25)
[2019-05-27] MEDS: CLINDAMYCIN INJ 300 MG in PREMIX 1 EACH IV SCH (02:23)
[2019-05-27] MEDS: LACTATED RINGERS 1,000 ML IV SCH (05:34)
[2019-05-27 06:28] LABS: Basophils % 0.2 % (0.0-0.8); Eosinophils # 0.2 10*3/uL (0.0-0.87); Eosinophils % 1.7 % (0.00-10.9); Hematocrit 34.8 VOL% (35.7-47.0); Hemoglobin 11.1 GM/DL (12.0-16.0); Immature Granulocytes % 0.6 %; Immature Granulocytes Absolute 0.06 #; Lymphocytes # 1.2 10*3/uL (1.4-4.0); Lymphocytes % 12.4 % (21.3-54.2); Mean Corpuscular HGB Conc 31.9 GM/DL (32-36); Mean Corpuscular Volume 95.3 FL (87-102); Mean Platelet Volume 11.4 FL (9.6-12.0); Monocytes % 9.3 % (1.7-12.7); Neutrophils % 75.8 % (38.7-73.9); Platelet Count 128 T/CUMM (130-400); Red Blood Count 3.65 MC/CUMM (3.8-5.5); Red Cell Distribution Width 14.1 % (9.3-17.3); White Blood Count 9.3 T/CUMM (4-12)
[2019-05-27 07:00] LABS: Calcium 8.7 MG/DL (8.5-10.1)
[2019-05-27] MEDS: INSULIN LISPRO 100 UNIT/ML SUBCUT SCH ×2 (08:59→12:04)
[2019-05-27] MEDS: GABAPENTIN 100 MG CAPSULE PO SCH (09:03)
[2019-05-27] MEDS: MEMANTINE 10 MG TABLET PO SCH (09:03)
[2019-05-27] MEDS: QUEtiapine 25 MG TABLET PO SCH ×2 (09:03→15:20)
[2019-05-27] MEDS: PANTOPRAZOLE 40 MG TABLET PO SCH (09:03)
[2019-05-27] MEDS ORDERED: TUBERCULIN SKIN TEST 0.1 ML SYRINGE INTRADERM ONE (10:46)
[2019-05-27 11:26] VITALS: BP 130/48
== END 2019-05-27 15:17 | DRG 470 ==
LOC: EDUNIT# → N.ED 13:29 → SUATTDRO 16:45 → N.EDINP 16:45 → N.ED 16:46 → N.3E 17:36
PROVIDERS: ADMIT Emergency Medicine; ATTEND Internal Medicine

== ENCOUNTER 2019-09-16 05:19 | Inpatient (IN) ==
[2019-09-16] MEDS ORDERED: SODIUM CHLORIDE 0.9% 1,000 ML IV STA (05:47)
[2019-09-16] MEDS ORDERED: ACETAMINOPHEN 500 MG TABLET PO STA (05:50)
[2019-09-16 06:01] LABS: Basophils % 0.4 % (0.0-0.8); Eosinophils # 0.1 10*3/uL (0.0-0.87); Eosinophils % 0.7 % (0.00-10.9); Hematocrit 36.3 VOL% (35.7-47.0); Hemoglobin 11.6 GM/DL (12.0-16.0); Immature Granulocytes % 0.5 %; Immature Granulocytes Absolute 0.05 #; Lymphocytes # 0.5 10*3/uL (1.4-4.0); Lymphocytes % 4.9 % (21.3-54.2); Mean Corpuscular Volume 91.9 FL (87-102); Mean Platelet Volume 10.9 FL (9.6-12.0); Monocytes % 4.1 % (1.7-12.7); Neutrophils % 89.4 % (38.7-73.9); Platelet Count 289 T/CUMM (130-400); Red Blood Count 3.95 MC/CUMM (3.8-5.5); Red Cell Distribution Width 14.3 % (9.3-17.3); White Blood Count 9.7 T/CUMM (4-12)
[2019-09-16 06:07] LABS: INR 1.1; PT Patient Result 11.6 SECS (9.8-11.9)
[2019-09-16 06:08] LABS: Apearance,Urine CLOUDY (Clear); Bacteria,Urine Many /HPF (Few); Bilirubin,Urine Negative (Negative); Blood, Urine Moderate mg/dL (Negative); Glucose,Urine (UA) >=500 mg/dL (Negative); Ketones,Urine Negative (Negative); Mucus,Urine Many /LPF (Occasional); Nitrite,Urine Negative (Negative); Protein,Urine 100 MG/DL; RBC,Urine 24 /HPF (0-4); Urine Color Amber (Yellow); Urine Specific Gravity 1.013 (1.001-1.035); Urine Urobilinogen < 2.0 EU/DL (0.2-1.0); WBC,Urine 143 /HPF (0-6)
[2019-09-16] MEDS ORDERED: ACETAMINOPHEN 650 MG SUPP RECTAL STA (06:08)
[2019-09-16 06:11] LABS: Barbiturates Screen,Urine Negative (Negative); Benzodiazepines Screen,Urine Positive (Negative); Cannabinoid Screen,Urine Negative (Negative); Opiate Screen,Urine Negative (Negative); Phencyclidine Screen,Urine Negative (Negative)
[2019-09-16 06:25] LABS: Alanine Aminotransferase 12 U/L (13-56); Albumin 2.6 G/DL (3.4-5.0); Alkaline Phosphatase 88 U/L (45-117); Aspartate Amino Transferase 15 U/L (0-37); Blood Urea Nitrogen 13 MG/DL (7-18); Calcium 9.3 MG/DL (8.5-10.1); Glucose 338 MG/DL (74-106); Total Protein 7.7 G/DL (6.4-8.3)
[2019-09-16 06:26] LABS: Estimated Glom Filtration Rate 0 ML/MIN
[2019-09-16] MEDS ORDERED: VANCOMYCIN INJ 1,000 MG in SODIUM CHLORIDE 0.9% 250 ML IV STA (06:44)
[2019-09-16] MEDS ORDERED: MEROPENEM 1,000 MG in SODIUM CHLORIDE 0.9% 100 ML IV ONE (06:45)
[2019-09-16] MEDS ORDERED: guaiFENesin/DM ER 600-30 MG TABLET PO PRN (07:52)
[2019-09-16] MEDS ORDERED: ACETAMINOPHEN 325 MG TABLET PO PRN (07:52)
[2019-09-16] MEDS ORDERED: GLUCAGON 1 MG VIAL IM PRN (07:52)
[2019-09-16] MEDS ORDERED: ONDANSETRON 4 MG/2 ML VIAL IV PRN (07:52)
[2019-09-16] MEDS ORDERED: hydrALAZINE 20 MG/1 ML VIAL IV PRN (07:52)
[2019-09-16] MEDS ORDERED: DEXTROSE 50% 25 GM/50 ML VIAL IV PRN (07:52)
[2019-09-16] MEDS ORDERED: DOCUSATE SODIUM 100 MG CAPSULE PO PRN (07:52)
[2019-09-16] MEDS ORDERED: ENOXAPARIN 40 MG/0.4 ML SYRINGE SUBCUT SCH (08:00)
[2019-09-16 08:03] LABS: Lymphocytes 3 % (20-55); Platelet Estimate Normal; Segmented Neutrophils 93 % (50-85); Total Cells Counted 100
[2019-09-16 08:07] LABS: Anisocytosis 1+; Hypochromasia 1+; Ovalocytes 1+
[2019-09-16 08:25] LABS: Risk Ratio 4.61; Thyroid Stimulating Hormone 1.04 uIU/ml (0.358-3.74); VLDL CHOLESTEROL 23.8 MG/DL
[2019-09-16] MEDS: SODIUM CHLORIDE 0.9% 1,000 ML IV SCH ×2 (09:05→21:24)
[2019-09-16] MEDS: INSULIN REGULAR 100 UNIT/ML SUBCUT SCH ×3 (11:41→20:35)
[2019-09-16] MEDS: MEROPENEM 500 MG in SODIUM CHLORIDE 0.9% 100 ML IV SCH ×2 (12:31→18:00)
[2019-09-16] MEDS: RIVASTIGMINE 9.5 MG/24 HR PATCH TRANSDERM SCH (20:45)
[2019-09-16] MEDS: MEMANTINE 10 MG TABLET PO SCH (20:47)
[2019-09-17] MEDS: MEROPENEM 500 MG in SODIUM CHLORIDE 0.9% 100 ML IV SCH ×4 (00:37→18:40)
[2019-09-17 06:20] LABS: Basophils % 0.4 % (0.0-0.8); Eosinophils # 0.2 10*3/uL (0.0-0.87); Eosinophils % 2.4 % (0.00-10.9); Hematocrit 32.5 VOL% (35.7-47.0); Hemoglobin 10.2 GM/DL (12.0-16.0); Immature Granulocytes % 0.8 %; Immature Granulocytes Absolute 0.07 #; Lymphocytes % 12.1 % (21.3-54.2); Mean Corpuscular HGB Conc 31.4 GM/DL (32-36); Mean Corpuscular Volume 92.9 FL (87-102); Mean Platelet Volume 10.7 FL (9.6-12.0); Monocytes % 8.3 % (1.7-12.7); Platelet Count 252 T/CUMM (130-400); Red Cell Distribution Width 14.3 % (9.3-17.3); White Blood Count 8.4 T/CUMM (4-12)
[2019-09-17] MEDS ORDERED: ONDANSETRON 4 MG/2 ML VIAL IV PRN (06:34)
[2019-09-17] MEDS ORDERED: MEPERIDINE 25 MG/1 ML VIAL IV PRN (06:34)
[2019-09-17 06:43] LABS: Calcium 9.2 MG/DL (8.5-10.1); Osmolality,Calculated 283.3 MOS/KG (273-304)
[2019-09-17] MEDS: SODIUM CHLORIDE 0.9% 1,000 ML IV SCH ×2 (08:15→13:56)
[2019-09-17] MEDS: INSULIN REGULAR 100 UNIT/ML SUBCUT SCH ×4 (08:15→22:09)
[2019-09-17] MEDS ORDERED: hydrALAZINE 20 MG/1 ML VIAL ONE (09:43)
[2019-09-17] MEDS ORDERED: hydrALAZINE 20 MG/1 ML VIAL IV STA (09:46)
[2019-09-17] MEDS: MEMANTINE 10 MG TABLET PO SCH ×2 (11:10→22:07)
[2019-09-17] MEDS: MULTIVITAMIN (CENTRUM) TABLET PO SCH (11:10)
[2019-09-17] MEDS: hydrALAZINE 10 MG TABLET PO SCH ×2 (11:11→22:07)
[2019-09-17] MEDS ORDERED: ONDANSETRON 4 MG/2 ML VIAL ONE (11:39)
[2019-09-17] MEDS ORDERED: propofoL 200 MG/20 ML VIAL IV ONE (11:39)
[2019-09-17] MEDS ORDERED: SEVOFLURANE 1 UNIT/15 MINUTE INH ONE (11:39)
[2019-09-17] MEDS ORDERED: LIDOCAINE 2% 5 ML VIAL ONE (11:39)
[2019-09-17] MEDS: POTASSIUM CHLORIDE RIDER 10 MEQ in PREMIX 1 EACH IV PRN ×4 (13:37→16:22)
[2019-09-17] MEDS: RIVASTIGMINE 9.5 MG/24 HR PATCH TRANSDERM SCH (22:07)
[2019-09-18] MEDS: MEROPENEM 500 MG in SODIUM CHLORIDE 0.9% 100 ML IV SCH ×4 (01:11→18:33)
[2019-09-18 05:48] LABS: Basophils % 0.4 % (0.0-0.8); Eosinophils # 0.2 10*3/uL (0.0-0.87); Eosinophils % 2.4 % (0.00-10.9); Immature Granulocytes % 0.6 %; Immature Granulocytes Absolute 0.05 #; Lymphocytes # 1.2 10*3/uL (1.4-4.0); Lymphocytes % 14.7 % (21.3-54.2); Mean Corpuscular HGB Conc 32.3 GM/DL (32-36); Mean Corpuscular Volume 91.7 FL (87-102); Mean Platelet Volume 10.5 FL (9.6-12.0); Monocytes % 7.5 % (1.7-12.7); Neutrophils % 74.4 % (38.7-73.9); Platelet Count 286 T/CUMM (130-400); Red Blood Count 3.38 MC/CUMM (3.8-5.5); Red Cell Distribution Width 14.4 % (9.3-17.3); White Blood Count 8.4 T/CUMM (4-12)
[2019-09-18 06:06] LABS: Calcium 8.8 MG/DL (8.5-10.1); Osmolality,Calculated 282.4 MOS/KG (273-304)
[2019-09-18] MEDS: INSULIN REGULAR 100 UNIT/ML SUBCUT SCH ×4 (09:09→22:44)
[2019-09-18] MEDS: MULTIVITAMIN (CENTRUM) TABLET PO SCH (10:04)
[2019-09-18] MEDS: MEMANTINE 10 MG TABLET PO SCH ×2 (10:04→22:45)
[2019-09-18] MEDS: hydrALAZINE 10 MG TABLET PO SCH ×2 (10:05→22:45)
[2019-09-18] MEDS: SODIUM CHLORIDE 0.9% 1,000 ML IV SCH (13:40)
[2019-09-18] MEDS: RIVASTIGMINE 9.5 MG/24 HR PATCH TRANSDERM SCH (22:41)
[2019-09-18] MEDS: POTASSIUM CHLORIDE RIDER 10 MEQ in PREMIX 1 EACH IV PRN (22:43)
[2019-09-18] MEDS: GABAPENTIN 100 MG CAPSULE PO SCH (22:45)
[2019-09-19] MEDS: MEROPENEM 500 MG in SODIUM CHLORIDE 0.9% 100 ML IV SCH ×4 (00:08→18:28)
[2019-09-19] MEDS: POTASSIUM CHLORIDE RIDER 10 MEQ in PREMIX 1 EACH IV PRN ×5 (00:13→15:26)
[2019-09-19 06:10] LABS: Basophils % 0.2 % (0.0-0.8); Eosinophils # 0.2 10*3/uL (0.0-0.87); Eosinophils % 1.8 % (0.00-10.9); Hemoglobin 11.1 GM/DL (12.0-16.0); Immature Granulocytes % 0.6 %; Immature Granulocytes Absolute 0.06 #; Lymphocytes # 1.5 10*3/uL (1.4-4.0); Lymphocytes % 14.1 % (21.3-54.2); Mean Corpuscular HGB Conc 32.6 GM/DL (32-36); Mean Platelet Volume 10.4 FL (9.6-12.0); Monocytes % 6.5 % (1.7-12.7); Neutrophils % 76.8 % (38.7-73.9); Platelet Count 329 T/CUMM (130-400); Red Blood Count 3.82 MC/CUMM (3.8-5.5); Red Cell Distribution Width 14.2 % (9.3-17.3); White Blood Count 10.3 T/CUMM (4-12)
[2019-09-19 06:44] LABS: Calcium 8.8 MG/DL (8.5-10.1)
[2019-09-19] MEDS: INSULIN REGULAR 100 UNIT/ML SUBCUT SCH ×4 (11:01→22:14)
[2019-09-19] MEDS: MULTIVITAMIN (CENTRUM) TABLET PO SCH (11:04)
[2019-09-19] MEDS: GABAPENTIN 100 MG CAPSULE PO SCH ×2 (11:04→22:14)
[2019-09-19] MEDS: hydrALAZINE 10 MG TABLET PO SCH ×2 (11:04→22:14)
[2019-09-19] MEDS: MEMANTINE 10 MG TABLET PO SCH ×2 (11:04→22:14)
[2019-09-19] MEDS: RIVASTIGMINE 9.5 MG/24 HR PATCH TRANSDERM SCH (21:46)
[2019-09-20] MEDS: MEROPENEM 500 MG in SODIUM CHLORIDE 0.9% 100 ML IV SCH ×3 (02:41→12:27)
[2019-09-20] MEDS: INSULIN REGULAR 100 UNIT/ML SUBCUT SCH ×3 (08:02→15:38)
[2019-09-20] MEDS: SODIUM CHLORIDE 0.9% 1,000 ML IV SCH (11:45)
[2019-09-20] MEDS: hydrALAZINE 10 MG TABLET PO SCH (14:05)
[2019-09-20] MEDS: GABAPENTIN 100 MG CAPSULE PO SCH (14:05)
[2019-09-20] MEDS: MULTIVITAMIN (CENTRUM) TABLET PO SCH (14:05)
[2019-09-20] MEDS: MEMANTINE 10 MG TABLET PO SCH (14:05)
[2019-09-20 16:48] VITALS: BP 157/65
== END 2019-09-20 16:45 | disposition home or self-care (01) | DRG 853 ==
LOC: EDUNIT# → N.ED 05:19 → N.EDINP 07:52 → SUATTDRO 07:52 → N.EDINP 09:13 → N.TELES 09:28
PROVIDERS: ADMIT Family Medicine; ATTEND Internal Medicine

== ENCOUNTER 2019-12-16 15:04 | Inpatient (IN) ==
[2019-12-16] MEDS ORDERED: SODIUM CHLORIDE 0.9% 1,000 ML IV STA (16:22)
[2019-12-16 18:05] LABS: Basophils # 0.1 10*3/uL (0.0-0.2); Basophils % 0.6 % (0.0-0.8); Eosinophils # 0.2 10*3/uL (0.0-0.87); Eosinophils % 1.9 % (0.00-10.9); Hematocrit 41.3 VOL% (35.7-47.0); Hemoglobin 13.6 GM/DL (12.0-16.0); Immature Granulocytes % 0.4 %; Immature Granulocytes Absolute 0.03 #; Lymphocytes # 1.8 10*3/uL (1.4-4.0); Lymphocytes % 22.3 % (21.3-54.2); Mean Corpuscular HGB Conc 32.9 GM/DL (32-36); Mean Corpuscular Volume 92.8 FL (87-102); Mean Platelet Volume 10.6 FL (9.6-12.0); Monocytes % 6.9 % (1.7-12.7); Neutrophils % 67.9 % (38.7-73.9); Platelet Count 292 T/CUMM (130-400); Red Blood Count 4.45 MC/CUMM (3.8-5.5); Red Cell Distribution Width 14.1 % (9.3-17.3); White Blood Count 8.2 T/CUMM (4-12)
[2019-12-16 18:11] LABS: INR 1.1; PT Patient Result 11.3 SECS (9.8-11.9)
[2019-12-16 18:13] LABS: Albumin 3.3 G/DL (3.4-5.0); Bilirubin,Total 0.5 MG/DL (0.2-1.0); Bilirubin,Urine Negative (Negative); Blood, Urine Negative (Negative); Calcium 10.5 MG/DL (8.5-10.1); Glucose,Urine (UA) 50 mg/dL (Negative); Ketones,Urine Negative (Negative); Mucus,Urine Occasional /LPF (Occasional); Nitrite,Urine Negative (Negative); Osmolality,Calculated 274.1 MOS/KG (273-304); Protein,Urine Negative; RBC,Urine 2 /HPF (0-4); Squamous Epithelial Cell,Urine Occasional /HPF (0-10); Urine Appearance CLEAR (Clear); Urine Color Yellow (Yellow); Urine Specific Gravity 1.015 (1.001-1.035); Urine Urobilinogen < 2.0 EU/DL (0.2-1.0); WBC,Urine 43 /HPF (0-6)
[2019-12-16] MEDS ORDERED: LEVOFLOXACIN INJ 500 MG in PREMIX 1 EACH IV STA (18:41)
[2019-12-16] MEDS ORDERED: ACETAMINOPHEN 325 MG TABLET PO PRN (19:47)
[2019-12-16] MEDS ORDERED: DOCUSATE SODIUM 100 MG CAPSULE PO PRN (19:47)
[2019-12-16] MEDS ORDERED: ONDANSETRON 4 MG/2 ML VIAL IV PRN (19:47)
[2019-12-16] MEDS ORDERED: LACTULOSE 20 GM/30 ML UDCUP PO PRN (19:47)
[2019-12-16] MEDS ORDERED: TEMAZEPAM 15 MG CAPSULE PO PRN (19:51)
[2019-12-16] MEDS ORDERED: hydrALAZINE 20 MG/1 ML VIAL IV PRN (19:54)
[2019-12-16 21:40] LABS: Folate > 24.0 NG/ML (5.4-24.0); Vitamin B12 334 PG/ML (211-911)
[2019-12-16] MEDS ORDERED: INFLUENZA VIRUS VACCINE 0.5 ML SYRINGE IM ONE (21:42)
[2019-12-16] MEDS: ENOXAPARIN 40 MG/0.4 ML SYRINGE SUBCUT SCH (22:15)
[2019-12-16] MEDS: SODIUM CHLORIDE 0.9% 1,000 ML IV SCH (22:15)
[2019-12-16] MEDS: RIVASTIGMINE 9.5 MG/24 HR PATCH TRANSDERM SCH (22:16)
[2019-12-16] MEDS: INSULIN REGULAR 100 UNIT/ML SUBCUT SCH (22:16)
[2019-12-16] MEDS: ERTAPENEM 1,000 MG in SODIUM CHLORIDE 0.9% 100 ML IV SCH (22:17)
[2019-12-16] MEDS: QUEtiapine 25 MG TABLET PO SCH (22:21)
[2019-12-16] MEDS: GABAPENTIN 100 MG CAPSULE PO SCH (22:21)
[2019-12-16] MEDS: MEMANTINE 10 MG TABLET PO SCH (22:22)
[2019-12-17 06:09] LABS: Basophils % 0.7 % (0.0-0.8); Eosinophils # 0.2 10*3/uL (0.0-0.87); Eosinophils % 3.6 % (0.00-10.9); Hematocrit 36.2 VOL% (35.7-47.0); Hemoglobin 11.9 GM/DL (12.0-16.0); Immature Granulocytes % 0.7 %; Immature Granulocytes Absolute 0.04 #; Lymphocytes # 1.7 10*3/uL (1.4-4.0); Mean Corpuscular HGB Conc 32.9 GM/DL (32-36); Mean Corpuscular Volume 92.8 FL (87-102); Mean Platelet Volume 10.7 FL (9.6-12.0); Monocytes % 10.9 % (1.7-12.7); Neutrophils % 56.1 % (38.7-73.9); Platelet Count 259 T/CUMM (130-400); White Blood Count 6.1 T/CUMM (4-12)
[2019-12-17 06:31] LABS: Albumin 2.8 G/DL (3.4-5.0); Bilirubin,Total 0.6 MG/DL (0.2-1.0); Calcium 9.6 MG/DL (8.5-10.1); Osmolality,Calculated 274.8 MOS/KG (273-304); Risk Ratio 8.07; Total Protein 7.4 G/DL (6.4-8.3); VLDL CHOLESTEROL 34.2 MG/DL
[2019-12-17 06:54] LABS: Hypochromasia Slight; Microcytosis Slight; Platelet Estimate Normal
[2019-12-17] MEDS: INSULIN REGULAR 100 UNIT/ML SUBCUT SCH ×4 (07:15→20:58)
[2019-12-17] MEDS: MEMANTINE 10 MG TABLET PO SCH ×2 (08:25→20:58)
[2019-12-17] MEDS: PANTOPRAZOLE 40 MG TABLET PO SCH (08:25)
[2019-12-17] MEDS: GABAPENTIN 100 MG CAPSULE PO SCH ×2 (08:25→20:58)
[2019-12-17] MEDS: QUEtiapine 25 MG TABLET PO SCH ×3 (08:25→20:58)
[2019-12-17] MEDS: SODIUM CHLORIDE 0.9% 1,000 ML IV SCH (10:38)
[2019-12-17] MEDS ORDERED: [UNRECOGNIZED DRUG - OTHER] SUBCUT SCH (11:30)
[2019-12-17] MEDS: lisinopriL 10 MG TABLET PO SCH (11:35)
[2019-12-17] MEDS: ERTAPENEM 1,000 MG in SODIUM CHLORIDE 0.9% 100 ML IV SCH (20:53)
[2019-12-17] MEDS: ENOXAPARIN 40 MG/0.4 ML SYRINGE SUBCUT SCH (20:53)
[2019-12-17] MEDS: RIVASTIGMINE 9.5 MG/24 HR PATCH TRANSDERM SCH (20:57)
[2019-12-17] MEDS: ZALEPLON 5 MG CAPSULE PO PRN (22:43)
[2019-12-18] MEDS: SODIUM CHLORIDE 0.9% 1,000 ML IV SCH ×2 (00:57→14:30)
[2019-12-18 05:51] LABS: Basophils # 0.1 10*3/uL (0.0-0.2); Basophils % 0.8 % (0.0-0.8); Eosinophils # 0.2 10*3/uL (0.0-0.87); Eosinophils % 2.8 % (0.00-10.9); Hematocrit 36.3 VOL% (35.7-47.0); Hemoglobin 11.9 GM/DL (12.0-16.0); Immature Granulocytes % 0.3 %; Immature Granulocytes Absolute 0.02 #; Lymphocytes # 1.8 10*3/uL (1.4-4.0); Lymphocytes % 28.5 % (21.3-54.2); Mean Corpuscular HGB Conc 32.8 GM/DL (32-36); Mean Corpuscular Volume 93.3 FL (87-102); Mean Platelet Volume 10.9 FL (9.6-12.0); Monocytes % 9.6 % (1.7-12.7); Platelet Count 256 T/CUMM (130-400); Red Blood Count 3.89 MC/CUMM (3.8-5.5); Red Cell Distribution Width 14.1 % (9.3-17.3); White Blood Count 6.1 T/CUMM (4-12)
[2019-12-18 07:16] LABS: Calcium 9.3 MG/DL (8.5-10.1); Osmolality,Calculated 269.1 MOS/KG (273-304)
[2019-12-18] MEDS: INSULIN REGULAR 100 UNIT/ML SUBCUT SCH ×4 (07:37→20:40)
[2019-12-18] MEDS: MEMANTINE 10 MG TABLET PO SCH ×2 (09:44→20:39)
[2019-12-18] MEDS: GABAPENTIN 100 MG CAPSULE PO SCH ×2 (09:44→20:39)
[2019-12-18] MEDS: PANTOPRAZOLE 40 MG TABLET PO SCH (09:46)
[2019-12-18] MEDS: QUEtiapine 25 MG TABLET PO SCH ×3 (09:46→20:40)
[2019-12-18] MEDS: lisinopriL 10 MG TABLET PO SCH (09:51)
[2019-12-18] MEDS: LORazepam 2 MG/1 ML VIAL IV PRN (15:10)
[2019-12-18] MEDS: ENOXAPARIN 40 MG/0.4 ML SYRINGE SUBCUT SCH (20:39)
[2019-12-18] MEDS: ZALEPLON 5 MG CAPSULE PO PRN (20:39)
[2019-12-18] MEDS: RIVASTIGMINE 9.5 MG/24 HR PATCH TRANSDERM SCH (20:40)
[2019-12-19] MEDS: SODIUM CHLORIDE 0.9% 1,000 ML IV SCH (00:50)
[2019-12-19 06:13] LABS: Basophils % 0.7 % (0.0-0.8); Eosinophils # 0.2 10*3/uL (0.0-0.87); Eosinophils % 2.6 % (0.00-10.9); Hematocrit 34.2 VOL% (35.7-47.0); Hemoglobin 11.6 GM/DL (12.0-16.0); Immature Granulocytes % 0.3 %; Immature Granulocytes Absolute 0.02 #; Lymphocytes # 1.6 10*3/uL (1.4-4.0); Lymphocytes % 25.8 % (21.3-54.2); Mean Corpuscular HGB Conc 33.9 GM/DL (32-36); Mean Corpuscular Volume 91.9 FL (87-102); Mean Platelet Volume 10.9 FL (9.6-12.0); Monocytes % 9.6 % (1.7-12.7); Platelet Count 241 T/CUMM (130-400); Red Blood Count 3.72 MC/CUMM (3.8-5.5); Red Cell Distribution Width 14.1 % (9.3-17.3); White Blood Count 6.1 T/CUMM (4-12)
[2019-12-19 06:36] LABS: Calcium 9.2 MG/DL (8.5-10.1); Osmolality,Calculated 280.4 MOS/KG (273-304)
[2019-12-19] MEDS: PANTOPRAZOLE 40 MG TABLET PO SCH (09:22)
[2019-12-19] MEDS: MEMANTINE 10 MG TABLET PO SCH ×2 (09:22→21:25)
[2019-12-19] MEDS: lisinopriL 10 MG TABLET PO SCH (09:22)
[2019-12-19] MEDS: GABAPENTIN 100 MG CAPSULE PO SCH ×2 (09:22→21:25)
[2019-12-19] MEDS: QUEtiapine 25 MG TABLET PO SCH ×3 (09:22→21:25)
[2019-12-19] MEDS: INSULIN REGULAR 100 UNIT/ML SUBCUT SCH ×4 (11:00→21:24)
[2019-12-19] MEDS ORDERED: TUBERCULIN SKIN TEST 0.1 ML SYRINGE INTRADERM ONE (11:14)
[2019-12-19] MEDS: RIVASTIGMINE 9.5 MG/24 HR PATCH TRANSDERM SCH (21:25)
[2019-12-19] MEDS: ENOXAPARIN 40 MG/0.4 ML SYRINGE SUBCUT SCH (21:25)
[2019-12-20] MEDS: INSULIN REGULAR 100 UNIT/ML SUBCUT SCH ×4 (07:42→21:26)
[2019-12-20] MEDS: QUEtiapine 25 MG TABLET PO SCH ×3 (09:11→21:23)
[2019-12-20] MEDS: lisinopriL 5 MG TABLET PO SCH (09:11)
[2019-12-20] MEDS: GABAPENTIN 100 MG CAPSULE PO SCH ×2 (09:11→21:24)
[2019-12-20] MEDS: PANTOPRAZOLE 40 MG TABLET PO SCH (09:11)
[2019-12-20] MEDS: MEMANTINE 10 MG TABLET PO SCH ×2 (09:11→21:23)
[2019-12-20] MEDS ORDERED: FUROSEMIDE 20 MG/2 ML VIAL IV ONE (15:26)
[2019-12-20] MEDS: LEVOFLOXACIN 750 MG TABLET PO SCH (17:42)
[2019-12-20] MEDS: ENOXAPARIN 40 MG/0.4 ML SYRINGE SUBCUT SCH (21:24)
[2019-12-20] MEDS: RIVASTIGMINE 9.5 MG/24 HR PATCH TRANSDERM SCH (21:25)
[2019-12-21] MEDS: INSULIN REGULAR 100 UNIT/ML SUBCUT SCH ×4 (08:58→22:14)
[2019-12-21] MEDS: GABAPENTIN 100 MG CAPSULE PO SCH ×2 (09:39→22:21)
[2019-12-21] MEDS: MEMANTINE 10 MG TABLET PO SCH ×2 (09:39→22:09)
[2019-12-21] MEDS: PANTOPRAZOLE 40 MG TABLET PO SCH (09:39)
[2019-12-21] MEDS: lisinopriL 5 MG TABLET PO SCH (09:39)
[2019-12-21] MEDS: QUEtiapine 25 MG TABLET PO SCH ×3 (09:40→22:09)
[2019-12-21] MEDS: LEVOFLOXACIN 750 MG TABLET PO SCH (10:15)
[2019-12-21] MEDS: LORazepam 2 MG/1 ML VIAL IV PRN (16:40)
[2019-12-21] MEDS: RIVASTIGMINE 9.5 MG/24 HR PATCH TRANSDERM SCH (22:09)
[2019-12-21] MEDS: ENOXAPARIN 40 MG/0.4 ML SYRINGE SUBCUT SCH (22:10)
[2019-12-22 05:56] LABS: Basophils % 0.2 % (0.0-0.8); Eosinophils # 0.4 10*3/uL (0.0-0.87); Eosinophils % 3.3 % (0.00-10.9); Hemoglobin 12.5 GM/DL (12.0-16.0); Immature Granulocytes % 0.4 %; Immature Granulocytes Absolute 0.05 #; Lymphocytes # 1.9 10*3/uL (1.4-4.0); Lymphocytes % 15.3 % (21.3-54.2); Mean Corpuscular HGB Conc 32.9 GM/DL (32-36); Mean Corpuscular Volume 93.1 FL (87-102); Mean Platelet Volume 10.8 FL (9.6-12.0); Neutrophils % 71.8 % (38.7-73.9); Platelet Count 244 T/CUMM (130-400); Red Blood Count 4.08 MC/CUMM (3.8-5.5); Red Cell Distribution Width 14.6 % (9.3-17.3); White Blood Count 12.5 T/CUMM (4-12)
[2019-12-22 06:27] LABS: Calcium 9.5 MG/DL (8.5-10.1); Osmolality,Calculated 287.3 MOS/KG (273-304)
[2019-12-22] MEDS: INSULIN REGULAR 100 UNIT/ML SUBCUT SCH ×2 (07:49→12:07)
[2019-12-22] MEDS: MEMANTINE 10 MG TABLET PO SCH (09:42)
[2019-12-22] MEDS: lisinopriL 5 MG TABLET PO SCH (09:42)
[2019-12-22] MEDS: GABAPENTIN 100 MG CAPSULE PO SCH (09:42)
[2019-12-22] MEDS: PANTOPRAZOLE 40 MG TABLET PO SCH (09:42)
[2019-12-22] MEDS: QUEtiapine 25 MG TABLET PO SCH (09:42)
[2019-12-22] MEDS: LEVOFLOXACIN 750 MG TABLET PO SCH (09:43)
[2019-12-22 12:01] VITALS: BP 94/53
== END 2019-12-22 13:10 | DRG 884 ==
LOC: N.ED 15:04 → N.3E 20:01
PROVIDERS: ADMIT Internal Medicine; ATTEND Internal Medicine